=== PATIENT | female | born 1955 | race Caucasian/White ===

== ENCOUNTER → 2016-06-15 | Day surgery (SDC) | payer OTHER ==
[2016-06-11 12:10] LABS: Urine Bilirubin Negative (Negative); Urine Blood Negative /uL (Negative); Urine Color Yellow (Yellow); Urine Glucose Normal (Normal); Urine Ketone Negative (Negative); Urine Mucus FEW (None Seen); Urine Nitrite Negative (Negative); Urine RBC 1 /hpf (0 - 4); Urine Squamous Epithelial Cell MANY /hpf (<5); Urine Urobilinogen Normal (Negative)
[2016-06-11 12:16] LABS: INR 0.95 (0.9-1.15); Prothrombin Time 9.8 sec (9.37-12.3)
[2016-06-11 12:30] LABS: Albumin 3.4 g/dL (3.4-5.0); BUN/Creatinine Ratio 18.7; Calcium 9.2 mg/dL (8.5-10.1); Potassium 4.9 mmol/L (3.5-5.1)
[2016-06-11 12:33] LABS: Bilirubin, Total 0.3 mg/dL (0.2-1.0); Total Protein 7.3 g/dL (6.4-8.2)
[2016-06-11 12:37] LABS: Basophils # (auto) 0.1 uL; Basophils % (auto) 0.7 % (0.0-2.0); Eosinophils # (auto) 0.3 uL; Hematocrit 44.1 % (36.0-46.0); Hemoglobin 14.3 g/dL (12.2-16.2); Lymphocytes # (auto) 3.1 uL; Lymphocytes % (auto) 36.9 % (10.0-50.0); Mean Corpuscular Hemoglobin 30.5 pg (28.0-32.0); Mean Corpuscular Hgb Conc. 32.4 g/dL (32.0-36.0); Mean Corpuscular Volume 94.3 fL (80.0-100.0); Monocytes # (auto) 0.7 uL; Monocytes % (auto) 8.1 % (0.0-12.0); Neutrophils # (auto) 4.1 uL; Neutrophils % (auto) 50.3 % (37.0-80.0); Platelet Count (auto) 294 10^3/uL (140-450); Red Cell Distribution Width 13.3 % (11.6-16.0); White Blood Cell 8.3 10^3/uL (4.4-10.8)
[~2016-06-15] VITALS: Ht 152.4 cm; Wt 90.7 kg
[~2016-06-15] MED LIST: ACYC200C PO; ASCO250T32 PO; CHOL500014 PO; COEN300C PO; EPIN0.3I18 IM; ESTR0.5T8 PO; FERR1TAB12 PO; HYDROmorphone HCL 2 MG/ML VL IV PRN; KETOROLAC TROMETH 30 MG/ML 1ML VIAL IV ONE; LABETALOL HCL 5 MG/ML 4ML SYRINGE IV PRN; MIDAZOLAM HCL 1MG/1ML-2 ML VIAL IV PRN; MIDAZOLAM HCL 1MG/1ML-2 ML VIAL ONE; MULT-902 OR; NITR0.4S29 SL; ONDANSETRON HCL 4 MG/2 ML VIAL IV ONE; ONDANSETRON HCL 4 MG/2 ML VIAL ONE; PEGI15IN SC; PROPOFOL 10 MG/ML 20 ML IV ONE; ROPI0.252 PO; ROPI1TAB2 PO; TRIA50CA38 PO; ePHEDrine SULFATE 50 MG/ML AMP IV PRN; fentaNYL CITRATE 100 MCG/2 ML VL ONE; hydrALAZINE HCL 20 MG/ML VL IV PRN
[2016-06-15 10:00] VITALS: BP 155/87
== END | disposition home or self-care (01) ==
LOC: GI 07:26
PROVIDERS: ATTEND Internal Medicine Gastroenterology
DX: Z12.11 Encounter for screening for malignant neoplasm of colon (principal); K64.8 Other hemorrhoids; J40 Bronchitis, not specified as acute or chronic; J45.909 Unspecified asthma, uncomplicated; E66.9 Obesity, unspecified; Z90.710 Acquired absence of both cervix and uterus
CPT/HCPCS: 36415; 45378; 80053; 81001; 85025; 85610; 85730; J2250; J2405; J2704

== ENCOUNTER → 2016-06-19 | Outpatient (CLI) | payer OTHER ==
[~2016-06-19] MED LIST changes: -HYDROmorphone HCL 2 MG/ML VL IV PRN; -KETOROLAC TROMETH 30 MG/ML 1ML VIAL IV ONE; -LABETALOL HCL 5 MG/ML 4ML SYRINGE IV PRN; -MIDAZOLAM HCL 1MG/1ML-2 ML VIAL IV PRN; -MIDAZOLAM HCL 1MG/1ML-2 ML VIAL ONE; -ONDANSETRON HCL 4 MG/2 ML VIAL IV ONE; -ONDANSETRON HCL 4 MG/2 ML VIAL ONE; -PROPOFOL 10 MG/ML 20 ML IV ONE; -ePHEDrine SULFATE 50 MG/ML AMP IV PRN; -fentaNYL CITRATE 100 MCG/2 ML VL ONE; -hydrALAZINE HCL 20 MG/ML VL IV PRN
[2016-06-19 12:40] LABS: Urine RBC None Seen /hpf (0 - 4)
[2016-06-19 13:31] LABS: Potassium 4.1 mmol/L (3.5-5.1)
[2016-06-19 13:34] LABS: Albumin 3.5 g/dL (3.4-5.0); BUN/Creatinine Ratio 21.1; Calcium 9.2 mg/dL (8.5-10.1)
[2016-06-19 13:49] LABS: Bilirubin, Total 0.3 mg/dL (0.2-1.0); Total Protein 7.4 g/dL (6.4-8.2)
[2016-06-19 14:27] LABS: Urine Bilirubin Negative (Negative); Urine Blood Negative /uL (Negative); Urine Color Yellow (Yellow); Urine Glucose Normal (Normal); Urine Ketone Negative (Negative); Urine Nitrite Negative (Negative); Urine Squamous Epithelial Cell FEW /hpf (<5); Urine Urobilinogen Normal (Negative); Urine pH 6.5 (5.0-8.0)
== END | disposition home or self-care (01) ==
LOC: LAB 10:57
PROVIDERS: ATTEND Family Medicine
DX: I10 Essential (primary) hypertension (principal); E78.5 Hyperlipidemia, unspecified
CPT/HCPCS: 36415; 80053; 80061; 81001; 82306; 82607; 83036; 84443

== ENCOUNTER → 2016-07-31 | Outpatient (CLI) | payer OTHER ==
[2016-07-31 10:16] LABS: Cholesterol 252 mg/dL (<200); HDL Cholesterol 64 mg/dL (40-59); LDL Cholesterol 157 mg/dL (<100); Triglycerides 212 mg/dL (<150)
== END | disposition home or self-care (01) ==
LOC: LAB 08:53
PROVIDERS: ATTEND Family Medicine
DX: E78.5 Hyperlipidemia, unspecified (principal)
CPT/HCPCS: 36415; 80061

== ENCOUNTER → 2016-08-03 | Outpatient (CLI) | payer OTHER ==
[2016-08-03 14:09] LABS: Basophils # (auto) 0 uL; Basophils % (auto) 0.5 % (0.0-2.0); Eosinophils # (auto) 0.3 uL; Eosinophils % (auto) 4.1 % (0.0-7.0); Hematocrit 43.1 % (36.0-46.0); Lymphocytes # (auto) 2.6 uL; Lymphocytes % (auto) 33.8 % (10.0-50.0); Mean Corpuscular Hemoglobin 30.7 pg (28.0-32.0); Mean Corpuscular Hgb Conc. 32.4 g/dL (32.0-36.0); Mean Corpuscular Volume 94.6 fL (80.0-100.0); Mean Platelet Volume 9.2 fL (7.4-10.4); Monocytes # (auto) 0.6 uL; Monocytes % (auto) 7.8 % (0.0-12.0); Neutrophils # (auto) 4.2 uL; Neutrophils % (auto) 53.8 % (37.0-80.0); Platelet Count (auto) 273 10^3/uL (140-450); Red Cell Distribution Width 14.4 % (11.6-16.0); White Blood Cell 7.8 10^3/uL (4.4-10.8)
[2016-08-03 14:22] LABS: INR 0.97 (0.9-1.15); Partial Thromboplastin Time 29.5 sec (22.64-33.71)
[2016-08-03 14:25] LABS: Urine Bilirubin Negative (Negative); Urine Blood Negative /uL (Negative); Urine Color Yellow (Yellow); Urine Glucose Normal (Normal); Urine Ketone Negative (Negative); Urine Mucus FEW (None Seen); Urine Nitrite Negative (Negative); Urine RBC <1 /hpf (0 - 4); Urine Squamous Epithelial Cell FEW /hpf (<5); Urine Urobilinogen Normal (Negative); Urine pH 5.5 (5.0-8.0)
[2016-08-03 14:58] LABS: Albumin 3.6 g/dL (3.4-5.0); BUN/Creatinine Ratio 22.9; Bilirubin, Total 0.3 mg/dL (0.2-1.0); Potassium 3.8 mmol/L (3.5-5.1); Total Protein 7.4 g/dL (6.4-8.2)
== END | disposition home or self-care (01) ==
LOC: LAB 11:40
PROVIDERS: ATTEND Orthopaedic Surgery
DX: M12.819 Other specific arthropathies, not elsewhere classified, unspecified shoulder (principal)
CPT/HCPCS: 36415; 80053; 81001; 85025; 85610; 85730

== ENCOUNTER 2016-08-07 06:01 | Day surgery (SDC) | payer OTHER ==
[~2016-08-07] VITALS: Ht 152.4 cm; Wt 90.7 kg
[2016-08-07] MEDS ORDERED: DOXAPRAM HCL 20 MG/ML 20ML VIAL INJ IV ONE (06:44)
[2016-08-07] MEDS ORDERED: SUCCINYLCHOLINE CHLORIDE 20 MG/ML 10ML VIAL IV ONE (06:44)
[2016-08-07] MEDS ORDERED: SODIUM CHLORIDE LOCK 20 ML ONE (06:54)
[2016-08-07] MEDS ORDERED: KETAMINE HCL 50 MG/ML 10ML VIAL ONE (06:54)
[2016-08-07] MEDS ORDERED: LIDOCAINE HCL 2 %PF INJ 10ML AMP IJ ONE (06:54)
[2016-08-07] MEDS ORDERED: ROCURONIUM 10MG/ML 10ML VIAL IV ONE (06:54)
[2016-08-07] MEDS ORDERED: NEOSTIGMINE 1 MG/ML INJ (10mg/10ML VIAL) ONE (06:54)
[2016-08-07] MEDS ORDERED: PROPOFOL 10 MG/ML 20 ML IV ONE ×2 (06:54→07:22)
[2016-08-07] MEDS ORDERED: MIDAZOLAM HCL 1MG/1ML-2 ML VIAL ONE (06:54)
[2016-08-07] MEDS ORDERED: fentaNYL CITRATE 100 MCG/2 ML VL ONE ×2 (06:54→08:33)
[2016-08-07] MEDS ORDERED: HYDROmorphone HCL 2 MG/ML VL ONE (06:54)
[2016-08-07] MEDS ORDERED: GLYCOPYRROLATE 0.2 MG/ML 1ML VIAL ONE (06:54)
[2016-08-07] MEDS ORDERED: KETOROLAC TROMETH 60MG/2ML VIAL IM ONE (06:54)
[2016-08-07] MEDS ORDERED: HYDROmorphone HCL 2 MG/ML VL IV PRN (07:15)
[2016-08-07] MEDS ORDERED: ONDANSETRON HCL 4 MG/2 ML VIAL IV ONE ×2 (07:15→12:15)
[2016-08-07] MEDS ORDERED: KETOROLAC TROMETH 30 MG/ML 1ML VIAL IV ONE (07:15)
[2016-08-07] MEDS ORDERED: LEVOFLOXACIN 500MG 100 ML IV ONE (07:27)
[2016-08-07] MEDS ORDERED: LIDOCAINE W/ EPINEPHRINE 1 % INJ 30ML ONE (07:30)
[2016-08-07] MEDS ORDERED: LIDOCAINE 1% HCL (LOCAL ANESTH.) INJ 20ML MDV ONE (07:30)
[2016-08-07] MEDS ORDERED: BUPIVACAINE W/ EPINEPH 0.25% INJ 50ML MDV ONE (07:30)
[2016-08-07] MEDS ORDERED: BUPIVACAINE 0.25% INJ 50ML VIAL ONE (07:30)
[2016-08-07] MEDS ORDERED: ACETAMINOPHEN IV 100 ML IV ONE (07:35)
[2016-08-07] MEDS ORDERED: BUPIVACAINE W/ EPINEPH 0.25% INJ 50ML MDV IJ ONE ×2 (08:11→08:47)
[2016-08-07] MEDS ORDERED: ONDANSETRON HCL 4 MG/2 ML VIAL ONE (10:56)
[2016-08-07 11:19] VITALS: BP 154/77
== END 2016-08-07 11:30 | disposition home or self-care (01) ==
LOC: SUR 06:01
PROVIDERS: ATTEND Orthopaedic Surgery
DX: S46.011A Strain of muscle(s) and tendon(s) of the rotator cuff of right shoulder, initial encounter (principal); M12.511 Traumatic arthropathy, right shoulder; J45.909 Unspecified asthma, uncomplicated; J40 Bronchitis, not specified as acute or chronic; E66.9 Obesity, unspecified; Z90.710 Acquired absence of both cervix and uterus; X58.XXXA Exposure to other specified factors, initial encounter; Y93.9 Activity, unspecified; Y92.9 Unspecified place or not applicable; Y99.9 Unspecified external cause status
CPT/HCPCS: 23120; 23130; 23412; J0131; J0330; J1885; J1956; J2250; J2405; J2704; J3010; J2001; J3490

== ENCOUNTER → 2016-09-29 | Outpatient (CLI) | payer OTHER ==
[2016-09-29 10:00] LABS: Urine RBC None Seen /hpf (0 - 4)
[2016-09-29 10:08] LABS: Basophils # (auto) 0 uL; Basophils % (auto) 0.3 % (0.0-2.0); Eosinophils # (auto) 0.4 uL; Eosinophils % (auto) 5.6 % (0.0-7.0); Hematocrit 42.6 % (36.0-46.0); Hemoglobin 14.3 g/dL (12.2-16.2); Lymphocytes # (auto) 2.4 uL; Lymphocytes % (auto) 31.4 % (10.0-50.0); Mean Corpuscular Hemoglobin 31.2 pg (28.0-32.0); Mean Corpuscular Hgb Conc. 33.6 g/dL (32.0-36.0); Mean Corpuscular Volume 92.8 fL (80.0-100.0); Mean Platelet Volume 9.2 fL (7.4-10.4); Monocytes # (auto) 0.4 uL; Monocytes % (auto) 5.1 % (0.0-12.0); Neutrophils # (auto) 4.4 uL; Neutrophils % (auto) 57.6 % (37.0-80.0); Platelet Count (auto) 297 10^3/uL (140-450); Red Cell Distribution Width 14.2 % (11.6-16.0); White Blood Cell 7.6 10^3/uL (4.4-10.8)
[2016-09-29 10:15] LABS: Urine Bilirubin Negative (Negative); Urine Blood Negative /uL (Negative); Urine Color Yellow (Yellow); Urine Glucose Normal (Normal); Urine Ketone Negative (Negative); Urine Nitrite Negative (Negative); Urine Squamous Epithelial Cell FEW /hpf (<5); Urine Urobilinogen Normal (Negative); Urine pH 5.5 (5.0-8.0)
[2016-09-29 10:31] LABS: Albumin 3.5 g/dL (3.4-5.0); BUN/Creatinine Ratio 27.9; Bilirubin, Total 0.3 mg/dL (0.2-1.0); Potassium 4.2 mmol/L (3.5-5.1); Total Protein 7.8 g/dL (6.4-8.2)
== END | disposition home or self-care (01) ==
LOC: LAB 09:24
PROVIDERS: ATTEND Family Medicine
DX: E78.1 Pure hyperglyceridemia (principal)
CPT/HCPCS: 36415; 80053; 80061; 81001; 82306; 82607; 83036; 84443; 85025; 86704; 86706; 86708; 86803; 87340

== ENCOUNTER → 2016-12-14 | Outpatient (CLI) | payer OTHER ==
[~2016-12-14] MED LIST changes: +ACYC1CAP23 PO; -ACYC200C PO
[2016-12-14 11:12] LABS: Basophils # (auto) 0 uL; Basophils % (auto) 0.3 % (0.0-2.0); CONDITION Y; Eosinophils # (auto) 0.3 uL; Eosinophils % (auto) 3.1 % (0.0-7.0); Hemoglobin 14.3 g/dL (12.2-16.2); Lymphocytes # (auto) 2.8 uL; Lymphocytes % (auto) 32.8 % (10.0-50.0); Mean Corpuscular Hemoglobin 31.2 pg (28.0-32.0); Mean Corpuscular Hgb Conc. 33.4 g/dL (32.0-36.0); Mean Corpuscular Volume 93.5 fL (80.0-100.0); Mean Platelet Volume 8.9 fL (7.4-10.4); Monocytes # (auto) 0.7 uL; Monocytes % (auto) 8.9 % (0.0-12.0); Neutrophils # (auto) 4.6 uL; Neutrophils % (auto) 54.9 % (37.0-80.0); Platelet Count (auto) 271 10^3/uL (140-450); Red Cell Distribution Width 13.7 % (11.6-16.0); White Blood Cell 8.4 10^3/uL (4.4-10.8)
[2016-12-14 12:00] LABS: Albumin 3.5 g/dL (3.4-5.0); BUN/Creatinine Ratio 21.8; Bilirubin, Total 0.3 mg/dL (0.2-1.0); Calcium 9.4 mg/dL (8.5-10.1); Potassium 4.7 mmol/L (3.5-5.1); Total Protein 7.8 g/dL (6.4-8.2)
== END | disposition home or self-care (01) ==
LOC: LAB 10:51
PROVIDERS: ATTEND Psychiatry & Neurology Neurology
DX: G35 Multiple sclerosis (principal); G25.81 Restless legs syndrome
CPT/HCPCS: 36415; 80053; 85025

== ENCOUNTER → 2017-01-25 | Outpatient (CLI) | payer OTHER ==
[2017-01-25 11:39] LABS: Basophils # (auto) 0 uL; Basophils % (auto) 0.5 % (0.0-2.0); CONDITION Y; Eosinophils # (auto) 0.2 uL; Eosinophils % (auto) 2.7 % (0.0-7.0); Hematocrit 43.3 % (36.0-46.0); Hemoglobin 14.4 g/dL (12.2-16.2); Lymphocytes # (auto) 2.5 uL; Lymphocytes % (auto) 31.9 % (10.0-50.0); Mean Corpuscular Hemoglobin 31.4 pg (28.0-32.0); Mean Corpuscular Hgb Conc. 33.1 g/dL (32.0-36.0); Mean Corpuscular Volume 94.8 fL (80.0-100.0); Mean Platelet Volume 8.9 fL (7.4-10.4); Monocytes # (auto) 0.6 uL; Monocytes % (auto) 7.9 % (0.0-12.0); Neutrophils # (auto) 4.4 uL; Platelet Count (auto) 284 10^3/uL (140-450); Red Cell Distribution Width 14.4 % (11.6-16.0); White Blood Cell 7.7 10^3/uL (4.4-10.8)
[2017-01-25 12:26] LABS: Albumin 3.6 g/dL (3.4-5.0); BUN/Creatinine Ratio 21.2; Bilirubin, Total 0.5 mg/dL (0.2-1.0); Calcium 9.2 mg/dL (8.5-10.1); Potassium 4.7 mmol/L (3.5-5.1); Total Protein 7.6 g/dL (6.4-8.2)
== END | disposition home or self-care (01) ==
LOC: LAB 11:00
PROVIDERS: ATTEND Psychiatry & Neurology Neurology
DX: I25.708 Atherosclerosis of coronary artery bypass graft(s), unspecified, with other forms of angina pectoris (principal); I25.5 Ischemic cardiomyopathy; I13.0 Hypertensive heart and chronic kidney disease with heart failure and stage 1 through stage 4 chronic kidney disease, or unspecified chronic kidney disease; I50.23 Acute on chronic systolic (congestive) heart failure; N18.9 Chronic kidney disease, unspecified; Z98.61 Coronary angioplasty status; Z95.1 Presence of aortocoronary bypass graft
CPT/HCPCS: 36415; 80053; 85025

== ENCOUNTER 2017-04-17 17:01 | Emergency (ER) | payer OTHER ==
[~2017-04-17] VITALS: Ht 152.4 cm; Wt 88.5 kg
[~2017-04-17 17:01] MED LIST changes: +ESTR0.5T5 PO; -ESTR0.5T8 PO
[2017-04-17 17:10] VITALS: BP 155/107
== END 2017-04-17 19:20 | disposition left against medical advice (07) ==
LOC: ER 17:09
DX: R11.2 Nausea with vomiting, unspecified (principal); M54.9 Dorsalgia, unspecified; Z53.21 Procedure and treatment not carried out due to patient leaving prior to being seen by health care provider
CPT/HCPCS: 93005

== ENCOUNTER → 2017-06-16 | Outpatient (CLI) | payer OTHER ==
[~2017-06-16] MED LIST changes: +ASCO250T10 PO; -ASCO250T32 PO
[2017-06-16 08:56] LABS: Basophils # (auto) 0.1 uL; Basophils % (auto) 0.9 % (0.0-2.0); Eosinophils # (auto) 0.2 uL; Eosinophils % (auto) 3.3 % (0.0-7.0); Hematocrit 42.7 % (36.0-46.0); Hemoglobin 14.2 g/dL (12.2-16.2); Lymphocytes # (auto) 2.3 uL; Lymphocytes % (auto) 29.8 % (10.0-50.0); Mean Corpuscular Hemoglobin 30.7 pg (28.0-32.0); Mean Corpuscular Hgb Conc. 33.2 g/dL (32.0-36.0); Mean Corpuscular Volume 92.6 fL (80.0-100.0); Monocytes # (auto) 0.6 uL; Monocytes % (auto) 7.9 % (0.0-12.0); Neutrophils # (auto) 4.5 uL; Neutrophils % (auto) 58.1 % (37.0-80.0); Nucleated Red Blood Cells % 0.1 %; Platelet Count (auto) 276 10^3/uL (140-450); Red Blood Cells 4.62 10^6/uL (4.0-5.20); Red Cell Distribution Width 13.4 % (11.8-14.3); White Blood Cell 7.7 10^3/uL (4.4-10.8)
[2017-06-16 09:24] LABS: Albumin 3.4 g/dL (3.4-5.0); BUN/Creatinine Ratio 24.3; Bilirubin, Total 0.4 mg/dL (0.2-1.0); Calcium 8.9 mg/dL (8.5-10.1); Potassium 4.4 mmol/L (3.5-5.1); Total Protein 7.6 g/dL (6.4-8.2)
== END | disposition home or self-care (01) ==
LOC: LAB 08:22
PROVIDERS: ATTEND Psychiatry & Neurology Neurology
DX: I10 Essential (primary) hypertension (principal)
CPT/HCPCS: 36415; 80053; 85025

== ENCOUNTER → 2018-06-29 | Outpatient (CLI) | payer OTHER ==
[~2018-06-29] MED LIST changes: -ROPI0.252 PO; +ROPI0.254 PO
== END | disposition home or self-care (01) ==
LOC: LAB 10:29
PROVIDERS: ATTEND Family Medicine
DX: R19.7 Diarrhea, unspecified (principal)
CPT/HCPCS: 87045; 87899

== ENCOUNTER → 2018-10-12 | Outpatient (CLI) | payer OTHER ==
[2018-10-12 10:24] LABS: Urine Bacteria FEW /hpf (None Seen); Urine Blood Negative /uL (Negative); Urine Specific Gravity 1.012 (1.001-1.035); Urine WBC 1 /hpf (0 - 5)
[2018-10-12 10:33] LABS: Basophils # (auto) 0.1 uL; Basophils % (auto) 0.9 % (0.0-2.0); Eosinophils # (auto) 0.2 uL; Eosinophils % (auto) 3.3 % (0.0-7.0); Hematocrit 43.2 % (36.0-46.0); Hemoglobin 14.5 g/dL (12.2-16.2); Lymphocytes # (auto) 1.6 uL; Mean Corpuscular Hemoglobin 31.5 pg (28.0-32.0); Mean Corpuscular Hgb Conc. 33.5 g/dL (32.0-36.0); Mean Corpuscular Volume 94.1 fL (80.0-100.0); Monocytes # (auto) 0.5 uL; Monocytes % (auto) 8.2 % (0.0-12.0); Neutrophils # (auto) 3.3 uL; Neutrophils % (auto) 58.6 % (37.0-80.0); Nucleated Red Blood Cells % 0.1 %; Platelet Count (auto) 261 10^3/uL (140-450); Red Blood Cells 4.59 10^6/uL (4.0-5.20); Red Cell Distribution Width 13.8 % (11.8-14.3); White Blood Cell 5.6 10^3/uL (4.4-10.8)
[2018-10-12 11:14] LABS: Albumin 3.4 g/dL (3.4-5.0); Potassium 4.2 mmol/L (3.5-5.1)
[2018-10-12 11:21] LABS: BUN/Creatinine Ratio 30.3; Bilirubin, Total 0.4 mg/dL (0.2-1.0); Calcium 8.9 mg/dL (8.5-10.1); Total Protein 7.8 g/dL (6.4-8.2)
[2018-10-12 11:52] LABS: % Iron Saturation 19.2 % (15-50)
== END | disposition home or self-care (01) ==
LOC: LAB 08:59
PROVIDERS: ATTEND Family Medicine
DX: D50.9 Iron deficiency anemia, unspecified (principal); E78.2 Mixed hyperlipidemia; G35 Multiple sclerosis; E66.9 Obesity, unspecified; Z79.899 Other long term (current) drug therapy
CPT/HCPCS: 36415; 80053; 80061; 81001; 82306; 82607; 82728; 83540; 83550; 84443; 85025

== ENCOUNTER → 2018-12-12 | Outpatient (CLI) | payer OTHER ==
[~2018-12-12] MED LIST changes: -ASCO250T10 PO; +CYCL0.05 EACHEYE; +EZET10TA22 PO; -FERR1TAB12 PO; -MULT-902 OR; -NITR0.4S29 SL; -PEGI15IN SC; +PRA25T PO; -ROPI0.254 PO; -ROPI1TAB2 PO; +TERI7TAB OR
[2018-12-12 10:07] LABS: Albumin 3.3 g/dL (3.4-5.0); Calcium 8.9 mg/dL (8.5-10.1); Potassium 4.1 mmol/L (3.5-5.1)
[2018-12-12 10:11] LABS: BUN/Creatinine Ratio 37.1; Bilirubin, Total 0.4 mg/dL (0.2-1.0); Total Protein 7.1 g/dL (6.4-8.2)
== END | disposition home or self-care (01) ==
LOC: LAB 09:26
PROVIDERS: ATTEND Psychiatry & Neurology Neurology
DX: G35 Multiple sclerosis (principal); R60.0 Localized edema
CPT/HCPCS: 36415; 80053

== ENCOUNTER 2018-12-16 15:45 | Inpatient (IN) | payer OTHER ==
[~2018-12-16] VITALS: Ht 152.4 cm; Wt 94.0 kg
[2018-12-16] MEDS ORDERED: CLINDAMYCIN 600MG IV 50 ML IV ONE (16:15)
[2018-12-16 16:29] LABS: Basophils # (auto) 0.1 uL; Basophils % (auto) 0.8 % (0.0-2.0); Eosinophils # (auto) 0.5 uL; Eosinophils % (auto) 5.6 % (0.0-7.0); Hematocrit 38.2 % (36.0-46.0); Hemoglobin 12.8 g/dL (12.2-16.2); Lymphocytes # (auto) 2.8 uL; Lymphocytes % (auto) 32.2 % (10.0-50.0); Mean Corpuscular Hemoglobin 31.6 pg (28.0-32.0); Mean Corpuscular Hgb Conc. 33.6 g/dL (32.0-36.0); Monocytes # (auto) 0.8 uL; Monocytes % (auto) 9.3 % (0.0-12.0); Neutrophils # (auto) 4.5 uL; Neutrophils % (auto) 52.1 % (37.0-80.0); Nucleated Red Blood Cells % 0.1 %; Platelet Count (auto) 213 10^3/uL (140-450); Red Blood Cells 4.06 10^6/uL (4.0-5.20); Red Cell Distribution Width 14.2 % (11.8-14.3); White Blood Cell 8.6 10^3/uL (4.4-10.8)
[2018-12-16 16:50] LABS: Albumin 3.4 g/dL (3.4-5.0); BUN/Creatinine Ratio 20.5; Calcium 8.7 mg/dL (8.5-10.1); Potassium 3.7 mmol/L (3.5-5.1)
[2018-12-16 16:52] LABS: Bilirubin, Total 0.1 mg/dL (0.2-1.0); Total Protein 6.9 g/dL (6.4-8.2)
[2018-12-16] MEDS ORDERED: SODIUM CHLORIDE 0.9% 1,000 ML IV ONE (19:22)
[2018-12-16] MEDS ORDERED: VANCOMYCIN 1GM/250ML 250 ML IV ONE (19:30)
[2018-12-16 19:41] LABS: Urine Bacteria FEW /hpf (None Seen); Urine Blood Negative /uL (Negative); Urine Specific Gravity 1.003 (1.001-1.035); Urine WBC 1 /hpf (0 - 5)
[2018-12-16] MEDS ORDERED: ONDANSETRON HCL 4 MG/2 ML VIAL IV PRN (23:15)
[2018-12-16] MEDS ORDERED: ACETAMINOPHEN 500 MG TAB PO PRN (23:15)
[2018-12-16] MEDS ORDERED: TEMAZEPAM 15 MG CAP PO PRN (23:15)
--- NOTE | 2018-12-16 23:41 | NUR ---
[facility] admit from ER MAYRA LOPEZ admitted to [facility] after hand off tool received. Patient oriented to primary RN, unit, room, bed, and unit policies regarding patient care and visiting hours. Patient weighed by bedscale and encouraged to call if they need something. All questions and concerns addressed, patient verbalized understanding.
[2018-12-17] MEDS ORDERED: LABE200T18 PO (01:12)
[2018-12-17] MEDS ORDERED: PRAM0.12 PO (01:12)
[2018-12-17] MEDS ORDERED: AML5T PO (01:12)
[2018-12-17 04:41] VITALS: BP 139/71
[2018-12-17 07:16] LABS: Basophils # (auto) 0.1 uL; Basophils % (auto) 0.8 % (0.0-2.0); Eosinophils # (auto) 0.5 uL; Eosinophils % (auto) 6.9 % (0.0-7.0); Hematocrit 36.2 % (36.0-46.0); Hemoglobin 12.5 g/dL (12.2-16.2); Lymphocytes # (auto) 2.8 uL; Lymphocytes % (auto) 38.3 % (10.0-50.0); Mean Corpuscular Hemoglobin 32.4 pg (28.0-32.0); Mean Corpuscular Hgb Conc. 34.7 g/dL (32.0-36.0); Mean Corpuscular Volume 93.6 fL (80.0-100.0); Monocytes # (auto) 0.8 uL; Monocytes % (auto) 10.3 % (0.0-12.0); Neutrophils # (auto) 3.2 uL; Neutrophils % (auto) 43.7 % (37.0-80.0); Nucleated Red Blood Cells % 0.1 %; Platelet Count (auto) 191 10^3/uL (140-450); Red Blood Cells 3.86 10^6/uL (4.0-5.20); White Blood Cell 7.4 10^3/uL (4.4-10.8)
[2018-12-17 07:20] LABS: BUN/Creatinine Ratio 14.8; Calcium 8.2 mg/dL (8.5-10.1); Potassium 3.6 mmol/L (3.5-5.1)
[2018-12-17 09:00] VITALS: BP 127/65
[2018-12-17] MEDS ORDERED: LABETALOL HCL 200 MG TAB PO SCH (10:00)
[2018-12-17 12:14] VITALS: BP 127/65
--- NOTE | 2018-12-17 13:43 | NUR ---
Discharge instructions given as ordered. Encourage to follow up with PMD as instructed. All questions and concerns addressed. Patient verbalized understanding. Medication reconciliation form completed and copy given to patient. IV removed with catheter intact, pressure dressing applied. Patient ambulated with steady gait to vehicle with all personal belongings, accompanied by family member. No distress noted at time of departure.
[2018-12-17] MEDS ORDERED: CLINDAMYCIN 600MG IV 50 ML IV SCH (14:00)
[2018-12-17] MEDS ORDERED: PRAMIPEXOLE DIHYDROCHLORIDE MO 0.25 MG TAB PO SCH (22:00)
== END 2018-12-17 13:35 | disposition home or self-care (01) | DRG 603 ==
LOC: ER 15:54 → OVERFLOW 15:55 → CENTRAL 23:32
PROVIDERS: ADMIT Nurse Practitioner Family; ATTEND Nurse Practitioner Family
DX: L03.115 Cellulitis of right lower limb (principal); E78.5 Hyperlipidemia, unspecified; L03.116 Cellulitis of left lower limb; G35 Multiple sclerosis; I10 Essential (primary) hypertension; J45.909 Unspecified asthma, uncomplicated; M77.11 Lateral epicondylitis, right elbow; Z96.612 Presence of left artificial shoulder joint; Z96.611 Presence of right artificial shoulder joint; M35.00 Sjogren syndrome, unspecified; Z80.8 Family history of malignant neoplasm of other organs or systems; Z82.49 Family history of ischemic heart disease and other diseases of the circulatory system; Z90.710 Acquired absence of both cervix and uterus; Z88.9 Allergy status to unspecified drugs, medicaments and biological substances
CPT/HCPCS: 36415; 71046; 80048; 80053; 81001; 83605; 83880; 85025; 87040; 96365; 96368; G0378; J3490

== ENCOUNTER → 2019-05-04 | Outpatient (CLI) | payer OTHER ==
[~2019-05-04] MED LIST changes: +AML5T PO; +LABE200T18 PO; -PRA25T PO; +PRAM0.12 PO
== END | disposition home or self-care (01) ==
LOC: LAB 15:00
PROVIDERS: ATTEND Otolaryngology
DX: D10.39 Benign neoplasm of other parts of mouth (principal)

== ENCOUNTER → 2020-02-12 | Outpatient (CLI) | payer OTHER ==
[~2020-02-12] MED LIST changes: +TRIA1CAP5 PO; -TRIA50CA38 PO
[2020-02-12 16:43] LABS: Basophils # (auto) 0.1 10 ^3/uL (0-0.2); Eosinophils # (auto) 0.3 10 ^3/uL (0-0.8); Eosinophils % (auto) 4.3 % (0.0-7.0); Hematocrit 41.2 % (36.0-46.0); Hemoglobin 13.7 g/dL (12.2-16.2); Lymphocytes # (auto) 2.3 10 ^3/uL (0.4-5.4); Lymphocytes % (auto) 29.6 % (10.0-50.0); Mean Corpuscular Hemoglobin 31.1 pg (28.0-32.0); Mean Corpuscular Hgb Conc. 33.2 g/dL (32.0-36.0); Mean Corpuscular Volume 93.7 fL (80.0-100.0); Monocytes # (auto) 0.8 10 ^3/uL (0-1.3); Monocytes % (auto) 10.1 % (0.0-12.0); Neutrophils # (auto) 4.3 10 ^3/uL (1.6-8.6); Nucleated Red Blood Cells % 0.1 %; Platelet Count (auto) 237 10^3/uL (140-450); Red Blood Cells 4.39 10^6/uL (4.0-5.20); Red Cell Distribution Width 13.6 % (11.8-14.3); White Blood Cell 7.7 10^3/uL (4.4-10.8)
[2020-02-12 16:55] LABS: Albumin 3.6 g/dL (3.4-5.0); Calcium 9.1 mg/dL (8.5-10.1); Potassium 4.4 mmol/L (3.5-5.1)
[2020-02-12 16:58] LABS: Bilirubin, Total 0.2 mg/dL (0.2-1.0); Total Protein 7.4 g/dL (6.4-8.2)
== END | disposition home or self-care (01) ==
LOC: LAB 16:14
PROVIDERS: ATTEND Internal Medicine
DX: I10 Essential (primary) hypertension (principal); R60.0 Localized edema
CPT/HCPCS: 36415; 80053; 80061; 85025

== ENCOUNTER → 2020-03-15 | Outpatient (CLI) | payer OTHER | END | disposition home or self-care (01) | LOC: XYW 08:41 | PROVIDERS: ATTEND Internal Medicine | DX: I08.2 Rheumatic disorders of both aortic and tricuspid valves (principal); I10 Essential (primary) hypertension | CPT/HCPCS: 93306 ==

== ENCOUNTER → 2020-04-03 | Outpatient (CLI) | payer OTHER ==
[~2020-04-03] VITALS: Ht 152.4 cm; Wt 93.0 kg
[~2020-04-03] MED LIST changes: +ADENOSINE 78 MG in GIVE UN-DILUTED 0 ML IV STA
== END | disposition home or self-care (01) ==
LOC: XY 08:09
PROVIDERS: ATTEND Internal Medicine
DX: I10 Essential (primary) hypertension (principal)
CPT/HCPCS: 78452; 93017; A9500; J0153

== ENCOUNTER → 2020-06-10 | Outpatient (CLI) | payer OTHER ==
[~2020-06-10] MED LIST changes: -ADENOSINE 78 MG in GIVE UN-DILUTED 0 ML IV STA; -LABE200T18 PO; +LABE200T7 PO
[2020-06-10 09:22] LABS: Albumin 3.2 g/dL (3.4-5.0); Calcium 8.8 mg/dL (8.5-10.1); Potassium 4.8 mmol/L (3.5-5.1)
[2020-06-10 09:26] LABS: BUN/Creatinine Ratio 32.4; Bilirubin, Total 0.4 mg/dL (0.2-1.0); Total Protein 6.9 g/dL (6.4-8.2)
== END | disposition home or self-care (01) ==
LOC: LAB 08:36
PROVIDERS: ATTEND Internal Medicine
DX: I10 Essential (primary) hypertension (principal)
CPT/HCPCS: 36415; 80053

== ENCOUNTER → 2020-07-11 | Outpatient (CLI) | payer OTHER ==
[2020-07-11 14:43] LABS: Basophils # (auto) 0.1 10 ^3/uL (0-0.2); Basophils % (auto) 1.1 % (0.0-2.0); Eosinophils # (auto) 0.4 10 ^3/uL (0-0.8); Eosinophils % (auto) 5.1 % (0.0-7.0); Hematocrit 42.2 % (36.0-46.0); Hemoglobin 13.9 g/dL (12.2-16.2); Lymphocytes # (auto) 3.2 10 ^3/uL (0.4-5.4); Lymphocytes % (auto) 37.3 % (10.0-50.0); Mean Corpuscular Hemoglobin 30.8 pg (28.0-32.0); Mean Corpuscular Volume 93.4 fL (80.0-100.0); Monocytes # (auto) 0.7 10 ^3/uL (0-1.3); Monocytes % (auto) 8.7 % (0.0-12.0); Neutrophils % (auto) 47.8 % (37.0-80.0); Platelet Count (auto) 256 10^3/uL (140-450); Red Blood Cells 4.52 10^6/uL (4.0-5.20); Red Cell Distribution Width 13.7 % (11.8-14.3); White Blood Cell 8.5 10^3/uL (4.4-10.8)
[2020-07-11 16:01] LABS: Albumin 3.3 g/dL (3.4-5.0); BUN/Creatinine Ratio 21.7; Calcium 8.6 mg/dL (8.5-10.1)
[2020-07-11 16:04] LABS: Bilirubin, Total 0.2 mg/dL (0.2-1.0); Total Protein 7.2 g/dL (6.4-8.2)
== END | disposition home or self-care (01) ==
LOC: LAB 14:29
PROVIDERS: ATTEND Psychiatry & Neurology Neurology
DX: G35 Multiple sclerosis (principal)
CPT/HCPCS: 36415; 80053; 85025

== ENCOUNTER → 2020-07-16 | Outpatient (CLI) | payer OTHER ==
[2020-07-16 08:35] LABS: Cholesterol 293 mg/dL (< 200)
[2020-07-16 08:38] LABS: HDL Cholesterol 70 mg/dL (40-59); LDL Cholesterol 166 mg/dL (< 100); Triglycerides 300 mg/dL (< 150)
== END | disposition home or self-care (01) ==
LOC: LAB 07:41
PROVIDERS: ATTEND Internal Medicine
DX: E78.5 Hyperlipidemia, unspecified (principal)
CPT/HCPCS: 36415; 80061

== ENCOUNTER → 2020-07-30 | Outpatient (CLI) | payer OTHER ==
[2020-07-30 13:13] LABS: BUN/Creatinine Ratio 15.9; Calcium 8.5 mg/dL (8.5-10.1); Potassium 4.8 mmol/L (3.5-5.1)
== END | disposition home or self-care (01) ==
LOC: LAB 12:09
PROVIDERS: ATTEND Family Medicine
DX: Z01.812 Encounter for preprocedural laboratory examination (principal); G35 Multiple sclerosis
CPT/HCPCS: 36415; 80048

== ENCOUNTER → 2020-08-06 | Outpatient (CLI) | payer OTHER ==
[~2020-08-06] MED LIST changes: +GADOTERATE MEG 10 MMOL/20ml INJ (0.5MMOL/ml) IV ONE
== END | disposition home or self-care (01) ==
LOC: XYW 12:39
PROVIDERS: ATTEND Family Medicine
DX: G35 Multiple sclerosis (principal); G93.89 Other specified disorders of brain
CPT/HCPCS: 70553; A9575

== ENCOUNTER → 2020-09-18 | Outpatient (CLI) | payer OTHER ==
[~2020-09-18] MED LIST changes: -GADOTERATE MEG 10 MMOL/20ml INJ (0.5MMOL/ml) IV ONE
[2020-09-18 10:18] LABS: Urine Blood Negative /uL (Negative); Urine Specific Gravity 1.022 (1.001-1.035)
[2020-09-18 10:58] LABS: Cholesterol 137 mg/dL (< 200); HDL Cholesterol 54 mg/dL (40-59); LDL Cholesterol 67 mg/dL (< 100); Triglycerides 111 mg/dL (< 150)
== END | disposition home or self-care (01) ==
LOC: LAB 09:19
PROVIDERS: ATTEND Family Medicine
DX: I10 Essential (primary) hypertension (principal); E66.01 Morbid (severe) obesity due to excess calories; E78.5 Hyperlipidemia, unspecified; E03.9 Hypothyroidism, unspecified; E55.9 Vitamin D deficiency, unspecified
CPT/HCPCS: 36415; 80061; 81003; 82306; 82607; 84443

== ENCOUNTER → 2020-10-30 | Outpatient (CLI) | payer OTHER ==
[~2020-10-30] MED LIST changes: +ALIR1INJ SC; +CHOL50007 PO; +DIME240C PO; +FURO40TA4 PO; +ICOS1CAP PO; +LOSA-39 PO; +METO-462 PO; +PRAM0.5T2 PO; +SPIR25TA8 PO
[2020-10-30 10:53] LABS: Basophils # (auto) 0.1 10 ^3/uL (0-0.2); Basophils % (auto) 1.1 % (0.0-2.0); Eosinophils % (auto) 14.9 % (0.0-7.0); Hematocrit 41.6 % (36.0-46.0); Hemoglobin 13.9 g/dL (12.2-16.2); Lymphocytes # (auto) 1.1 10 ^3/uL (0.4-5.4); Lymphocytes % (auto) 16.3 % (10.0-50.0); Mean Corpuscular Hemoglobin 32.2 pg (28.0-32.0); Mean Corpuscular Hgb Conc. 33.4 g/dL (32.0-36.0); Mean Corpuscular Volume 96.4 fL (80.0-100.0); Monocytes # (auto) 0.6 10 ^3/uL (0-1.3); Monocytes % (auto) 8.3 % (0.0-12.0); Neutrophils # (auto) 4.1 10 ^3/uL (1.6-8.6); Neutrophils % (auto) 59.4 % (37.0-80.0); Nucleated Red Blood Cells % 0.1 %; Platelet Count (auto) 244 10^3/uL (140-450); Red Blood Cells 4.31 10^6/uL (4.0-5.20); Red Cell Distribution Width 14.1 % (11.8-14.3); White Blood Cell 6.8 10^3/uL (4.4-10.8)
[2020-10-30 11:09] LABS: INR 0.98 (0.9-1.15); Partial Thromboplastin Time 27.9 sec (23.0-31.2)
[2020-10-30 12:06] LABS: Potassium 3.9 mmol/L (3.5-5.1)
[2020-10-30 12:22] LABS: Albumin 3.7 g/dL (3.4-5.0); BUN/Creatinine Ratio 38.6; Bilirubin, Total 0.4 mg/dL (0.2-1.0); Calcium 8.9 mg/dL (8.5-10.1); Total Protein 7.1 g/dL (6.4-8.2)
== END | disposition home or self-care (01) ==
LOC: LAB 10:30
PROVIDERS: ATTEND Internal Medicine
DX: Z01.812 Encounter for preprocedural laboratory examination (principal); I10 Essential (primary) hypertension
CPT/HCPCS: 36415; 80053; 85025; 85610; 85730

== ENCOUNTER 2020-11-01 06:37 | Day surgery (SDC) | payer OTHER ==
[~2020-11-01] VITALS: Ht 152.4 cm; Wt 87.5 kg
[~2020-11-01 06:37] MED LIST changes: -ACYC1CAP23 PO; -AML5T PO; -CHOL500014 PO; -COEN300C PO; -LABE200T7 PO; -PRAM0.12 PO; -TERI7TAB OR; -TRIA1CAP5 PO
[2020-11-01] MEDS ORDERED: IODIXANOL 320MG/ML 100ML BTL IV ONE ×3 (07:24→07:45)
[2020-11-01] MEDS ORDERED: ANGIOMAX 250 MG VIAL IV ONE (07:40)
[2020-11-01] MEDS ORDERED: SODIUM CHL 0.9% 0 ML ONE (07:40)
[2020-11-01] MEDS ORDERED: MIDAZOLAM HCL 1MG/1ML-2 ML VIAL ONE (07:40)
[2020-11-01] MEDS ORDERED: methylPREDNISolone SOD SUCC 125 MG/2 ML VL ONE (07:40)
[2020-11-01] MEDS ORDERED: diphenhdrAMINE HCL 50 MG/1 ML VL ONE (07:40)
[2020-11-01] MEDS ORDERED: LIDOCAINE 2%HCL (LOCAL ANESTH.) INJ 20ML MDV ONE (07:45)
[2020-11-01] MEDS ORDERED: FAMOTIDINE (10MG/ML) 2ML VL IV ONE (07:54)
[2020-11-01] MEDS ORDERED: VERAPAMIL 2.5MG/ML INJ 2ML VIAL IV ONE (07:58)
[2020-11-01] MEDS ORDERED: HEPARIN SODIUM (PORCINE) 5000 UNITS/ML 1ML VIAL ONE (08:14)
[2020-11-01] MEDS ORDERED: ONDANSETRON HCL 4 MG/2 ML VIAL IV PRN (08:35)
[2020-11-01] MEDS ORDERED: ONDANSETRON HCL 4 MG/2 ML VIAL ONE (08:36)
[2020-11-01] MEDS ORDERED: ACETAMINOPHEN 500 MG TAB PO PRN (09:00)
== END 2020-11-01 11:05 | disposition home or self-care (01) ==
LOC: CATH 06:37
PROVIDERS: ATTEND Internal Medicine
DX: R07.89 Other chest pain (principal); I10 Essential (primary) hypertension; E78.5 Hyperlipidemia, unspecified; G47.30 Sleep apnea, unspecified; Z20.822 Contact with and (suspected) exposure to COVID-19; Z98.890 Other specified postprocedural states; Z79.899 Other long term (current) drug therapy; Z68.37 Body mass index [BMI] 37.0-37.9, adult; Z88.8 Allergy status to other drugs, medicaments and biological substances; Z88.5 Allergy status to narcotic agent; Z88.0 Allergy status to penicillin; Z85.3 Personal history of malignant neoplasm of breast; Z85.42 Personal history of malignant neoplasm of other parts of uterus
CPT/HCPCS: 93458; C1887; C1894; J1200; J1644; J2405; J2930; J3490; Q9967; U0003; 99152; J2250

== ENCOUNTER 2020-12-04 12:15 | Day surgery (SDC) | payer OTHER ==
[2020-11-29 09:35] LABS: Basophils # (auto) 0 10 ^3/uL (0-0.2); Basophils % (auto) 0.4 % (0.0-2.0); Eosinophils # (auto) 0.6 10 ^3/uL (0-0.8); Eosinophils % (auto) 8.9 % (0.0-7.0); Hematocrit 39.8 % (36.0-46.0); Hemoglobin 13.3 g/dL (12.2-16.2); Lymphocytes % (auto) 14.4 % (10.0-50.0); Mean Corpuscular Hemoglobin 31.5 pg (28.0-32.0); Mean Corpuscular Hgb Conc. 33.4 g/dL (32.0-36.0); Mean Corpuscular Volume 94.4 fL (80.0-100.0); Monocytes # (auto) 0.6 10 ^3/uL (0-1.3); Monocytes % (auto) 8.6 % (0.0-12.0); Neutrophils # (auto) 4.7 10 ^3/uL (1.6-8.6); Neutrophils % (auto) 67.7 % (37.0-80.0); Red Blood Cells 4.22 10^6/uL (4.0-5.20); Red Cell Distribution Width 13.6 % (11.8-14.3); White Blood Cell 6.9 10^3/uL (4.4-10.8)
[2020-11-29 10:25] LABS: Urine Bacteria FEW /hpf (None Seen); Urine Blood Negative /uL (Negative); Urine Mucus FEW (None Seen); Urine Specific Gravity 1.014 (1.001-1.035); Urine WBC 1 /hpf (0 - 5)
[2020-11-29 11:04] LABS: Potassium 3.8 mmol/L (3.5-5.1)
[2020-11-29 11:12] LABS: Albumin 3.5 g/dL (3.4-5.0); Bilirubin, Total 0.5 mg/dL (0.2-1.0); Calcium 8.5 mg/dL (8.5-10.1); Total Protein 6.9 g/dL (6.4-8.2)
[~2020-12-04] VITALS: Ht 152.4 cm; Wt 86.6 kg
[~2020-12-04 12:15] MED LIST changes: +DILT240C59 PO; -METO-462 PO
[2020-12-04] MEDS ORDERED: SODIUM CHLORIDE LOCK 10 ML ONE (12:59)
[2020-12-04] MEDS ORDERED: LIDOCAINE VISCOUS 2% 15ML UD ONE (13:00)
[2020-12-04] MEDS: diphenhdrAMINE HCL 50 MG/1 ML VL ONE ×2 (14:12→14:15)
[2020-12-04] MEDS: MIDAZOLAM HCL 5 MG/ML-1ML VIAL ONE ×3 (14:12→14:18)
[2020-12-04] MEDS ORDERED: ONDANSETRON HCL 4 MG/2 ML VIAL ONE (14:42)
[2020-12-04] MEDS ORDERED: ONDANSETRON HCL 4 MG/2 ML VIAL IV ONE (14:45)
[2020-12-04 15:00] VITALS: BP 119/60
== END 2020-12-04 15:20 | disposition home or self-care (01) ==
LOC: GI 12:15
PROVIDERS: ATTEND Internal Medicine Gastroenterology
DX: R19.7 Diarrhea, unspecified (principal); R11.0 Nausea; K44.9 Diaphragmatic hernia without obstruction or gangrene; K31.89 Other diseases of stomach and duodenum; K29.80 Duodenitis without bleeding; K29.50 Unspecified chronic gastritis without bleeding; I10 Essential (primary) hypertension; E78.5 Hyperlipidemia, unspecified; G47.30 Sleep apnea, unspecified; G35 Multiple sclerosis; Z98.890 Other specified postprocedural states; Z79.899 Other long term (current) drug therapy; Z20.822 Contact with and (suspected) exposure to COVID-19; Z85.3 Personal history of malignant neoplasm of breast; Z85.42 Personal history of malignant neoplasm of other parts of uterus; Z90.710 Acquired absence of both cervix and uterus; Z82.49 Family history of ischemic heart disease and other diseases of the circulatory system; Z80.8 Family history of malignant neoplasm of other organs or systems
CPT/HCPCS: 36415; 43239; 80053; 81001; 85025; 88305; 88342; J1200; J2250; J2405; J7030; U0003; 99152

== ENCOUNTER → 2020-12-31 | Outpatient (CLI) | payer OTHER ==
[2020-12-31 11:16] LABS: Basophils # (auto) 0.1 10 ^3/uL (0-0.2); Eosinophils # (auto) 0.2 10 ^3/uL (0-0.8); Eosinophils % (auto) 2.9 % (0.0-7.0); Hemoglobin 14.1 g/dL (12.2-16.2); Lymphocytes # (auto) 1.7 10 ^3/uL (0.4-5.4); Lymphocytes % (auto) 22.1 % (10.0-50.0); Mean Corpuscular Hemoglobin 31.3 pg (28.0-32.0); Mean Corpuscular Hgb Conc. 33.5 g/dL (32.0-36.0); Mean Corpuscular Volume 93.3 fL (80.0-100.0); Monocytes # (auto) 0.7 10 ^3/uL (0-1.3); Monocytes % (auto) 8.8 % (0.0-12.0); Neutrophils # (auto) 5.1 10 ^3/uL (1.6-8.6); Neutrophils % (auto) 65.2 % (37.0-80.0); Red Cell Distribution Width 13.5 % (11.8-14.3); White Blood Cell 7.8 10^3/uL (4.4-10.8)
[2020-12-31 12:09] LABS: Potassium 4.2 mmol/L (3.5-5.1)
[2020-12-31 12:20] LABS: Albumin 3.5 g/dL (3.4-5.0); BUN/Creatinine Ratio 31.1; Bilirubin, Total 0.4 mg/dL (0.2-1.0); Calcium 9.3 mg/dL (8.5-10.1); Total Protein 7.5 g/dL (6.4-8.2)
== END | disposition home or self-care (01) ==
LOC: LAB 10:59
PROVIDERS: ATTEND Psychiatry & Neurology Neurology
DX: G35 Multiple sclerosis (principal)
CPT/HCPCS: 36415; 80053; 85025

== ENCOUNTER → 2021-06-06 | Day surgery (SDC) | payer OTHER ==
[2021-06-03 10:44] LABS: Basophils # (auto) 0 10 ^3/uL (0-0.2); Basophils % (auto) 0.5 % (0.0-2.0); Eosinophils # (auto) 0.5 10 ^3/uL (0-0.8); Hematocrit 42.9 % (36.0-46.0); Hemoglobin 13.9 g/dL (12.2-16.2); Lymphocytes % (auto) 10.9 % (10.0-50.0); Mean Corpuscular Hemoglobin 30.3 pg (28.0-32.0); Mean Corpuscular Hgb Conc. 32.4 g/dL (32.0-36.0); Mean Corpuscular Volume 93.6 fL (80.0-100.0); Monocytes # (auto) 0.7 10 ^3/uL (0-1.3); Neutrophils # (auto) 6.9 10 ^3/uL (1.6-8.6); Neutrophils % (auto) 75.6 % (37.0-80.0); Nucleated Red Blood Cells % 0.1 %; Red Blood Cells 4.59 10^6/uL (4.0-5.20); Red Cell Distribution Width 13.5 % (11.8-14.3); White Blood Cell 9.1 10^3/uL (4.4-10.8)
[2021-06-03 13:03] LABS: Potassium 4.5 mmol/L (3.5-5.1)
[2021-06-03 13:16] LABS: Albumin 3.7 g/dL (3.4-5.0); BUN/Creatinine Ratio 28.4; Bilirubin, Total 0.4 mg/dL (0.2-1.0); Calcium 9.3 mg/dL (8.5-10.1); Total Protein 7.2 g/dL (6.4-8.2)
[~2021-06-06] VITALS: Ht 152.4 cm; Wt 76.7 kg
[~2021-06-06] MED LIST changes: -ALIR1INJ SC; +ALIR75IN2 SC; +FAMO-68 PO; -ICOS1CAP PO; +LIDO5DIS21 TOP; -LOSA-39 PO; +METO-281 PO; +ONDA-144 PO; +ONDANSETRON HCL 4 MG/2 ML VIAL IV ONE; +ONDANSETRON HCL 4 MG/2 ML VIAL ONE; +ZOLP12.52 PO; +fentaNYL CITRATE 100 MCG/2 ML VL ONE
[2021-06-06] MEDS: diphenhdrAMINE HCL 50 MG/1 ML VL ONE ×2 (14:03→14:06)
[2021-06-06] MEDS: MIDAZOLAM HCL 5 MG/ML-1ML VIAL ONE ×3 (14:03→14:10)
[2021-06-06 15:05] VITALS: BP 140/64
== END | disposition home or self-care (01) ==
LOC: GI 12:39
PROVIDERS: ATTEND Internal Medicine Gastroenterology
DX: R19.5 Other fecal abnormalities (principal); K64.8 Other hemorrhoids; G47.30 Sleep apnea, unspecified; I10 Essential (primary) hypertension; E78.5 Hyperlipidemia, unspecified; J45.909 Unspecified asthma, uncomplicated; Z90.10 Acquired absence of unspecified breast and nipple; Z85.3 Personal history of malignant neoplasm of breast; Z85.42 Personal history of malignant neoplasm of other parts of uterus; Z90.710 Acquired absence of both cervix and uterus; Z82.49 Family history of ischemic heart disease and other diseases of the circulatory system; Z83.79 Family history of other diseases of the digestive system; Z96.611 Presence of right artificial shoulder joint; Z96.612 Presence of left artificial shoulder joint; Z90.49 Acquired absence of other specified parts of digestive tract; Z90.89 Acquired absence of other organs; Z98.890 Other specified postprocedural states; Z79.899 Other long term (current) drug therapy; Z88.5 Allergy status to narcotic agent; Z88.6 Allergy status to analgesic agent; Z88.7 Allergy status to serum and vaccine; Z88.8 Allergy status to other drugs, medicaments and biological substances; Z20.822 Contact with and (suspected) exposure to COVID-19
CPT/HCPCS: 36415; 45378; 80053; 85025; J1200; J2250; J2405; J7030; U0003; 99152

== ENCOUNTER → 2021-08-18 | Outpatient (CLI) | payer OTHER ==
[~2021-08-18] MED LIST changes: -ONDANSETRON HCL 4 MG/2 ML VIAL IV ONE; -ONDANSETRON HCL 4 MG/2 ML VIAL ONE; -fentaNYL CITRATE 100 MCG/2 ML VL ONE
[2021-08-18 09:48] LABS: Cholesterol 148 mg/dL (< 200); HDL Cholesterol 70 mg/dL (40-59); LDL Cholesterol 58 mg/dL (< 100); Triglycerides 82 mg/dL (< 150)
== END | disposition home or self-care (01) ==
LOC: LAB 08:03
PROVIDERS: ATTEND Student in an Organized Health Care Education/Training Program
DX: E78.49 Other hyperlipidemia (principal)
CPT/HCPCS: 36415; 80061

== ENCOUNTER → 2021-10-27 | Outpatient (CLI) | payer OTHER | END | disposition home or self-care (01) | LOC: LAB 07:41 | PROVIDERS: ATTEND Internal Medicine | DX: Z01.812 Encounter for preprocedural laboratory examination (principal); I13.0 Hypertensive heart and chronic kidney disease with heart failure and stage 1 through stage 4 chronic kidney disease, or unspecified chronic kidney disease | CPT/HCPCS: 36415; 82565; 84520 ==

== ENCOUNTER → 2021-10-27 | Outpatient (CLI) | payer OTHER ==
[2021-10-27 09:00] VITALS: BP 115/54
[2021-10-27 09:48] VITALS: BP 120/66
== END | disposition home or self-care (01) ==
LOC: CHF HDHVI 08:47
PROVIDERS: ATTEND Internal Medicine Cardiovascular Disease
DX: R60.0 Localized edema (principal)
CPT/HCPCS: G0463

== ENCOUNTER → 2021-10-29 | Outpatient (CLI) | payer OTHER | END | disposition home or self-care (01) | LOC: LAB 10:19 | PROVIDERS: ATTEND Psychiatry & Neurology Neurology | DX: I82.409 Acute embolism and thrombosis of unspecified deep veins of unspecified lower extremity (principal); G25.81 Restless legs syndrome; G35 Multiple sclerosis; E66.8 Other obesity; R60.0 Localized edema; G40.109 Localization-related (focal) (partial) symptomatic epilepsy and epileptic syndromes with simple partial seizures, not intractable, without status epilepticus | CPT/HCPCS: 36415; 82565; 84520 ==

== ENCOUNTER → 2021-10-29 | Outpatient (CLI) | payer OTHER ==
[2021-10-29 10:49] VITALS: BP 131/64
[2021-10-29 11:29] VITALS: BP 132/68
== END | disposition home or self-care (01) ==
LOC: CHF HDHVI 10:48
PROVIDERS: ATTEND Internal Medicine
DX: R60.0 Localized edema (principal)
CPT/HCPCS: G0463

== ENCOUNTER → 2022-02-05 | Outpatient (CLI) | payer OTHER ==
[2022-02-05 10:25] LABS: Basophils # (auto) 0.1 10 ^3/uL (0-0.2); Basophils % (auto) 0.9 % (0.0-2.0); Eosinophils # (auto) 0.3 10 ^3/uL (0-0.8); Eosinophils % (auto) 3.2 % (0.0-7.0); Hematocrit 40.5 % (36.0-46.0); Hemoglobin 13.2 g/dL (12.2-16.2); Lymphocytes % (auto) 12.1 % (10.0-50.0); Mean Corpuscular Hemoglobin 29.9 pg (28.0-32.0); Mean Corpuscular Hgb Conc. 32.5 g/dL (32.0-36.0); Mean Corpuscular Volume 91.8 fL (80.0-100.0); Monocytes # (auto) 0.8 10 ^3/uL (0-1.3); Monocytes % (auto) 9.6 % (0.0-12.0); Neutrophils # (auto) 5.9 10 ^3/uL (1.6-8.6); Neutrophils % (auto) 74.2 % (37.0-80.0); Red Blood Cells 4.42 10^6/uL (4.0-5.20); Red Cell Distribution Width 13.2 % (11.8-14.3); White Blood Cell 7.9 10^3/uL (4.4-10.8)
[2022-02-05 10:53] LABS: Albumin 3.5 g/dL (3.4-5.0); Potassium 4.7 mmol/L (3.5-5.1)
[2022-02-05 10:56] LABS: Bilirubin, Total 0.3 mg/dL (0.2-1.0); Total Protein 6.8 g/dL (6.4-8.2)
== END | disposition home or self-care (01) ==
LOC: LAB 10:05
PROVIDERS: ATTEND Internal Medicine
DX: I87.2 Venous insufficiency (chronic) (peripheral) (principal); I10 Essential (primary) hypertension; I73.00 Raynaud's syndrome without gangrene; G35 Multiple sclerosis
CPT/HCPCS: 36415; 80053; 85025; 85613; 85670; 85705; 85732; 86038; 86225; 86431

== ENCOUNTER → 2022-02-20 | Outpatient (CLI) | payer OTHER | END | disposition home or self-care (01) | LOC: XY 11:08 | PROVIDERS: ATTEND Internal Medicine | DX: I65.23 Occlusion and stenosis of bilateral carotid arteries (principal); R09.89 Other specified symptoms and signs involving the circulatory and respiratory systems | CPT/HCPCS: 93886 ==

== ENCOUNTER → 2022-08-28 | Outpatient (CLI) | payer OTHER ==
[2022-08-28 10:58] LABS: Albumin 3.4 g/dL (3.4-5.0); Calcium 9.4 mg/dL (8.5-10.1); Potassium 4.6 mmol/L (3.5-5.1)
[2022-08-28 11:01] LABS: BUN/Creatinine Ratio 29.9 (10.0-20.0); Bilirubin, Total 0.3 mg/dL (0.2-1.0); Total Protein 7.1 g/dL (6.4-8.2)
[2022-08-28 11:10] LABS: Neutrophils % (auto) 68.7 % (37.0-80.0); White Blood Cell 6.7 10^3/uL (4.4-10.8)
[2022-08-28 11:11] LABS: Eosinophils % (auto) 2.9 % (0.0-7.0); Lymphocytes % (auto) 17.5 % (10.0-50.0); Monocytes % (auto) 10.5 % (0.0-12.0)
[2022-08-28 11:15] LABS: Basophils # (auto) 0 10 ^3/uL (0-0.2); Basophils % (auto) 0.4 % (0.0-2.0); Eosinophils # (auto) 0.2 10 ^3/uL (0-0.8); Lymphocytes # (auto) 1.2 10 ^3/uL (0.4-5.4); Monocytes # (auto) 0.7 10 ^3/uL (0-1.3); Neutrophils # (auto) 4.6 10 ^3/uL (1.6-8.6); Nucleated Red Blood Cells % 0.1 %
[2022-08-28 11:16] LABS: Hematocrit 40.8 % (36.0-46.0); Hemoglobin 13.6 g/dL (12.2-16.2); Mean Corpuscular Hemoglobin 31.1 pg (28.0-32.0); Mean Corpuscular Hgb Conc. 33.3 g/dL (32.0-36.0); Mean Corpuscular Volume 93.4 fL (80.0-100.0); Red Blood Cells 4.37 10^6/uL (4.0-5.20)
[2022-08-28 11:17] LABS: Red Cell Distribution Width 13.7 % (11.8-14.3)
== END | disposition home or self-care (01) ==
LOC: LAB 09:48
PROVIDERS: ATTEND Podiatrist
DX: G35 Multiple sclerosis (principal)
CPT/HCPCS: 36415; 80053; 85025

== ENCOUNTER 2022-09-02 09:48 | Day surgery (SDC) | payer OTHER ==
[2022-08-28 10:20] LABS: Urine Bacteria NONE SEEN /hpf (None Seen); Urine Blood Negative /uL (Negative); Urine Mucus FEW (None Seen); Urine Specific Gravity 1.022 (1.001-1.035); Urine WBC 2 /hpf (0 - 5)
[2022-08-28 10:26] LABS: Basophils # (auto) 0 10 ^3/uL (0-0.2); Basophils % (auto) 0.4 % (0.0-2.0); Eosinophils # (auto) 0.2 10 ^3/uL (0-0.8); Eosinophils % (auto) 2.9 % (0.0-7.0); Hematocrit 40.8 % (36.0-46.0); Hemoglobin 13.6 g/dL (12.2-16.2); Lymphocytes # (auto) 1.2 10 ^3/uL (0.4-5.4); Lymphocytes % (auto) 17.5 % (10.0-50.0); Mean Corpuscular Hemoglobin 31.1 pg (28.0-32.0); Mean Corpuscular Hgb Conc. 33.3 g/dL (32.0-36.0); Mean Corpuscular Volume 93.4 fL (80.0-100.0); Monocytes # (auto) 0.7 10 ^3/uL (0-1.3); Monocytes % (auto) 10.5 % (0.0-12.0); Neutrophils # (auto) 4.6 10 ^3/uL (1.6-8.6); Neutrophils % (auto) 68.7 % (37.0-80.0); Nucleated Red Blood Cells % 0.1 %; Red Blood Cells 4.37 10^6/uL (4.0-5.20); Red Cell Distribution Width 13.7 % (11.8-14.3); White Blood Cell 6.7 10^3/uL (4.4-10.8)
[2022-08-28 10:38] LABS: INR 0.92 (0.9-1.15); Partial Thromboplastin Time 30.1 sec (24.6-33.4)
[2022-08-28 10:52] LABS: Calcium 9.4 mg/dL (8.5-10.1); Potassium 4.6 mmol/L (3.5-5.1)
[2022-08-28 10:55] LABS: Albumin 3.5 g/dL (3.4-5.0); BUN/Creatinine Ratio 28.8 (10.0-20.0); Bilirubin, Total 0.3 mg/dL (0.2-1.0); Total Protein 7.1 g/dL (6.4-8.2)
[~2022-09-02] VITALS: Ht 152.4 cm; Wt 81.6 kg
[2022-09-02] MEDS ORDERED: ceFAZolin 1GM/50ML 100 ML IV ONE (09:59)
[2022-09-02] MEDS ORDERED: BUPIVACAINE HCL 0 ML ONE (10:15)
[2022-09-02] MEDS ORDERED: LIDOCAINE HCL (LOCAL ANESTH.) 0.5 % 50ML MDV IJ ONE (10:15)
[2022-09-02] MEDS ORDERED: PROPOFOL 10 MG/ML 20 ML IV ONE ×2 (10:49→11:41)
[2022-09-02] MEDS ORDERED: ONDANSETRON HCL 4 MG/2 ML VIAL ONE (10:51)
[2022-09-02] MEDS ORDERED: LIDOCAINE 2% (LOCAL ANESTH.) PF 5ml SDV ONE (10:51)
[2022-09-02] MEDS ORDERED: KETOROLAC TROMETH 30 MG/ML 1ML VIAL ONE (10:51)
[2022-09-02] MEDS ORDERED: DexAMETHasone SOD PHOS 10MG/1ML VIAL INJ ONE (10:51)
[2022-09-02] MEDS ORDERED: GLYCOPYRROLATE 0.2 MG/ML 1ML VIAL ONE (10:51)
[2022-09-02] MEDS ORDERED: BUPIVACAINE HCL 50 ML ONE (11:59)
[2022-09-02 13:27] VITALS: BP 134/92
== END 2022-09-02 13:32 | disposition home or self-care (01) ==
LOC: SUR 09:48
PROVIDERS: ATTEND Podiatrist
DX: M21.621 Bunionette of right foot (principal); M72.2 Plantar fascial fibromatosis; J45.909 Unspecified asthma, uncomplicated; I10 Essential (primary) hypertension; K21.9 Gastro-esophageal reflux disease without esophagitis; I25.10 Atherosclerotic heart disease of native coronary artery without angina pectoris; M19.90 Unspecified osteoarthritis, unspecified site; E78.5 Hyperlipidemia, unspecified; K59.09 Other constipation; F32.A Depression, unspecified; Z90.49 Acquired absence of other specified parts of digestive tract; Z88.6 Allergy status to analgesic agent; Z88.8 Allergy status to other drugs, medicaments and biological substances; Z88.2 Allergy status to sulfonamides; Z91.048 Other nonmedicinal substance allergy status; Z88.1 Allergy status to other antibiotic agents; Z88.5 Allergy status to narcotic agent; G47.30 Sleep apnea, unspecified; Z85.3 Personal history of malignant neoplasm of breast; Z82.49 Family history of ischemic heart disease and other diseases of the circulatory system; Z80.9 Family history of malignant neoplasm, unspecified; Z85.42 Personal history of malignant neoplasm of other parts of uterus; Z90.710 Acquired absence of both cervix and uterus; Z98.890 Other specified postprocedural states; Z79.899 Other long term (current) drug therapy
CPT/HCPCS: 28060; 28308; 36415; 80053; 81001; 85025; 85610; 85730; J0690; J1100; J1885; J2001; J2405; J2704; J3490

== ENCOUNTER → 2022-12-09 | Day surgery (SDC) | payer OTHER ==
[2022-12-07 09:48] LABS: Basophils # (auto) 0 10 ^3/uL (0-0.2); Basophils % (auto) 0.7 % (0.0-2.0); Eosinophils # (auto) 0.2 10 ^3/uL (0-0.8); Eosinophils % (auto) 3.3 % (0.0-7.0); Hematocrit 43.4 % (36.0-46.0); Hemoglobin 14.2 g/dL (12.2-16.2); Lymphocytes # (auto) 1.2 10 ^3/uL (0.4-5.4); Lymphocytes % (auto) 19.8 % (10.0-50.0); Mean Corpuscular Hemoglobin 30.5 pg (28.0-32.0); Mean Corpuscular Hgb Conc. 32.7 g/dL (32.0-36.0); Mean Corpuscular Volume 93.2 fL (80.0-100.0); Monocytes # (auto) 0.6 10 ^3/uL (0-1.3); Monocytes % (auto) 9.8 % (0.0-12.0); Neutrophils # (auto) 4.2 10 ^3/uL (1.6-8.6); Neutrophils % (auto) 66.4 % (37.0-80.0); Nucleated Red Blood Cells % 0.1 %; Red Blood Cells 4.66 10^6/uL (4.0-5.20); Red Cell Distribution Width 13.6 % (11.8-14.3); White Blood Cell 6.3 10^3/uL (4.4-10.8)
[2022-12-07 10:17] LABS: Potassium 4.6 mmol/L (3.5-5.1)
[2022-12-07 10:28] LABS: Albumin 3.4 g/dL (3.4-5.0); BUN/Creatinine Ratio 25.6 (10.0-20.0); Bilirubin, Total 0.4 mg/dL (0.2-1.0); Calcium 9.4 mg/dL (8.5-10.1); Total Protein 7.6 g/dL (6.4-8.2)
[2022-12-07 10:51] LABS: INR 0.93 (0.9-1.15); Partial Thromboplastin Time 31.1 SEC (24.5-34.5)
[~2022-12-09] VITALS: Ht 152.4 cm; Wt 85.3 kg
[~2022-12-09] MED LIST changes: -DILT240C59 PO; -EZET10TA22 PO; +KETAMINE HCL 10 ML ONE; +LIDOCAINE VISCOUS 2% 15ML UD ONE; -METO-281 PO; +MIDAZOLAM HCL 5 MG/ML-1ML VIAL ONE; +OMEP20TA PO; +ONDANSETRON HCL 4 MG/2 ML VIAL IV PRN; +ONDANSETRON HCL 4 MG/2 ML VIAL ONE; +PRA1C PO; -PRAM0.5T2 PO; +PRAM0.7513 PO; +PREG50CA PO; +PROPOFOL 10 MG/ML 20 ML IV ONE; +SODIUM CHLORIDE LOCK 10 ML ONE; +SUCR1SUS5 PO; -ZOLP12.52 PO; +diphenhdrAMINE HCL 50 MG/1 ML VL ONE
[2022-12-09 14:50] VITALS: RESP 15; TEMP 96.9; O2SAT 99
[2022-12-09 15:42] VITALS: BP 152/74; PULSE 76; RESP 12; O2SAT 97
== END | disposition home or self-care (01) ==
LOC: GI 12-08 09:57
PROVIDERS: ATTEND Internal Medicine Gastroenterology
DX: R13.12 Dysphagia, oropharyngeal phase (principal); R10.13 Epigastric pain; K22.2 Esophageal obstruction; K29.90 Gastroduodenitis, unspecified, without bleeding; K44.9 Diaphragmatic hernia without obstruction or gangrene
CPT/HCPCS: 36415; 43239; 43450; 80053; 85025; 85610; 85730; 88305; 88312; 88342; J2405; J2704; J7030; J2250

== ENCOUNTER → 2023-01-07 | Outpatient (CLI) | payer OTHER ==
[~2023-01-07] MED LIST changes: -KETAMINE HCL 10 ML ONE; -LIDOCAINE VISCOUS 2% 15ML UD ONE; -MIDAZOLAM HCL 5 MG/ML-1ML VIAL ONE; -ONDANSETRON HCL 4 MG/2 ML VIAL IV PRN; -ONDANSETRON HCL 4 MG/2 ML VIAL ONE; -PROPOFOL 10 MG/ML 20 ML IV ONE; -SODIUM CHLORIDE LOCK 10 ML ONE; -diphenhdrAMINE HCL 50 MG/1 ML VL ONE
[2023-01-07 14:50] LABS: Urine Bacteria FEW /hpf (None Seen); Urine Blood Negative /uL (Negative); Urine Clarity Clear (Clear); Urine Color Yellow (Yellow); Urine Mucus FEW (None Seen); Urine Protein, UAD Negative (Negative); Urine Specific Gravity 1.024 (1.001-1.035); Urine Urobilinogen Normal (Negative); Urine WBC <1 /hpf (0 - 5)
== END | disposition home or self-care (01) ==
LOC: LAB 14:07
PROVIDERS: ATTEND Urology
DX: N39.0 Urinary tract infection, site not specified (principal)
CPT/HCPCS: 81001; 87086

== ENCOUNTER → 2023-06-08 | Outpatient (CLI) | payer OTHER | END | disposition home or self-care (01) | LOC: XYW 10:37 | PROVIDERS: ATTEND Internal Medicine | DX: I51.7 Cardiomegaly (principal); R07.9 Chest pain, unspecified | CPT/HCPCS: 93306 ==

== ENCOUNTER → 2023-06-08 | Outpatient (CLI) | payer OTHER ==
[2023-06-08 11:55] LABS: Basophils # (auto) 0.1 10 ^3/uL (0-0.2); Basophils % (auto) 0.6 % (0.0-2.0); Eosinophils # (auto) 0.3 10 ^3/uL (0-0.8); Eosinophils % (auto) 3.5 % (0.0-7.0); Hematocrit 42.4 % (36.0-46.0); Lymphocytes # (auto) 1.4 10 ^3/uL (0.4-5.4); Lymphocytes % (auto) 17.2 % (10.0-50.0); Mean Corpuscular Hemoglobin 30.9 pg (28.0-32.0); Mean Corpuscular Volume 93.6 fL (80.0-100.0); Monocytes # (auto) 0.7 10 ^3/uL (0-1.3); Monocytes % (auto) 8.3 % (0.0-12.0); Neutrophils # (auto) 5.5 10 ^3/uL (1.6-8.6); Neutrophils % (auto) 70.4 % (37.0-80.0); Red Blood Cells 4.53 10^6/uL (4.0-5.20); White Blood Cell 7.9 10^3/uL (4.4-10.8)
[2023-06-08 12:30] LABS: Alanine Aminotransferase 24 U/L (7-40); Alkaline Phosphatase 87 U/L (46-116); Anion Gap 4 (5-15); BUN/Creatinine Ratio 21.1 (10.0-20.0); Blood Urea Nitrogen 16 mg/dL (9-23); Carbon Dioxide 28 mmol/L (20-30); Chloride 106 mmol/L (98-107); Glucose 95 mg/dL (74-106); Potassium 4.2 mmol/L (3.5-5.1); Sodium 138 mmol/L (136-145); Triglycerides 147 mg/dL (< 150)
[2023-06-08 12:31] LABS: Albumin 4.5 g/dL (3.2-4.8); LDL Cholesterol 141 mg/dL (< 100)
[2023-06-08 12:32] LABS: Aspartate Aminotransferase 16 U/L (13-40); Bilirubin, Total 0.6 mg/dL (0.2-1.0); Cholesterol 224 mg/dL (< 200); HDL Cholesterol 65 mg/dL (40-59); Total Protein 7.3 g/dL (5.7-8.2)
[2023-06-08 13:52] LABS: Free T3 3.24 pg/mL (2.3-4.2)
[2023-06-08 13:53] LABS: Free T4 (Free Thyroxine) 0.95 ng/dL (0.89-1.76)
== END | disposition home or self-care (01) ==
LOC: LAB 11:22
PROVIDERS: ATTEND Internal Medicine
DX: I13.0 Hypertensive heart and chronic kidney disease with heart failure and stage 1 through stage 4 chronic kidney disease, or unspecified chronic kidney disease (principal); N18.9 Chronic kidney disease, unspecified; I50.9 Heart failure, unspecified; I20.1 Angina pectoris with documented spasm
CPT/HCPCS: 36415; 80053; 80061; 84439; 84443; 84481; 85025

== ENCOUNTER → 2023-06-23 | Outpatient (CLI) | payer OTHER ==
[~2023-06-23] VITALS: Ht 152.4 cm; Wt 81.6 kg
[~2023-06-23] MED LIST changes: +ADENOSINE 69 MG in GIVE UN-DILUTED 0 ML IV ONE; +ADENOSINE 90 MG/30 ML INJ IV ONE
== END | disposition home or self-care (01) ==
LOC: Rad HDHVI 08:03
PROVIDERS: ATTEND Internal Medicine Cardiovascular Disease
DX: R07.89 Other chest pain (principal); I10 Essential (primary) hypertension; E78.00 Pure hypercholesterolemia, unspecified; Z82.49 Family history of ischemic heart disease and other diseases of the circulatory system
CPT/HCPCS: 78452; 93005; 96374; 96375; A9500; J0153

== ENCOUNTER 2023-11-04 08:50 | Emergency (ER) | payer OTHER ==
[~2023-11-04] VITALS: Ht 152.4 cm; Wt 89.2 kg
[~2023-11-04 08:50] MED LIST changes: -ADENOSINE 69 MG in GIVE UN-DILUTED 0 ML IV ONE; -ADENOSINE 90 MG/30 ML INJ IV ONE
[2023-11-04 09:05] VITALS: BP 178/82; PULSE 75; RESP 18; O2SAT 99
== END 2023-11-04 10:00 | disposition left against medical advice (07) ==
LOC: ER 08:50
DX: M79.674 Pain in right toe(s) (principal); Z53.21 Procedure and treatment not carried out due to patient leaving prior to being seen by health care provider

== ENCOUNTER 2024-04-19 07:53 | Inpatient (IN) | payer OTHER ==
[2024-04-17 12:48] LABS: Basophils # (auto) 0 10 ^3/uL (0-0.2); Basophils % (auto) 0.3 % (0.0-2.0); Eosinophils # (auto) 0.2 10 ^3/uL (0-0.8); Eosinophils % (auto) 3.3 % (0.0-7.0); Hematocrit 41.8 % (36.0-46.0); Hemoglobin 13.9 g/dL (12.2-16.2); Lymphocytes # (auto) 1.6 10 ^3/uL (0.4-5.4); Lymphocytes % (auto) 22.1 % (10.0-50.0); Mean Corpuscular Hemoglobin 31.2 pg (28.0-32.0); Mean Corpuscular Hgb Conc. 33.2 g/dL (32.0-36.0); Mean Corpuscular Volume 93.9 fL (80.0-100.0); Monocytes # (auto) 0.6 10 ^3/uL (0-1.3); Monocytes % (auto) 8.2 % (0.0-12.0); Neutrophils # (auto) 4.8 10 ^3/uL (1.6-8.6); Neutrophils % (auto) 66.1 % (37.0-80.0); Platelet Count (auto) 231 10^3/uL (140-450); Red Blood Cells 4.45 10^6/uL (4.0-5.20); Red Cell Distribution Width 13.6 % (11.8-14.3); White Blood Cell 7.3 10^3/uL (4.4-10.8)
[2024-04-17 13:09] LABS: Alanine Aminotransferase 21 U/L (7-40); Alkaline Phosphatase 98 U/L (46-116); Anion Gap 6 (5-15); BUN/Creatinine Ratio 21.7 (10.0-20.0); Blood Urea Nitrogen 15 mg/dL (9-23); Calcium 9.8 mg/dL (8.7-10.4); Carbon Dioxide 27 mmol/L (20-31); Chloride 106 mmol/L (98-107); Glucose 94 mg/dL (74-106); Potassium 4.2 mmol/L (3.5-5.1); Sodium 139 mmol/L (136-145)
[2024-04-17 13:10] LABS: Albumin 4.2 g/dL (3.2-4.8); Aspartate Aminotransferase 14 U/L (13-40)
[2024-04-17 13:11] LABS: Bilirubin, Total 0.4 mg/dL (0.2-1.0); Total Protein 6.9 g/dL (5.7-8.2)
[2024-04-17 13:13] LABS: Urine Bacteria FEW /hpf (None Seen); Urine Blood Negative /uL (Negative); Urine Clarity Clear (Clear); Urine Color Yellow (Yellow); Urine Mucus FEW (None Seen); Urine Protein, UAD Negative (Negative); Urine Specific Gravity 1.024 (1.001-1.035); Urine Urobilinogen Normal (Negative); Urine WBC 1 /hpf (0 - 5); Urine pH 5.5 (5.0-9.0)
[2024-04-17 13:18] LABS: INR 0.96 (0.9-1.15); Partial Thromboplastin Time 29.4 SEC (24.5-34.5); Prothrombin Time 10.2 sec (9.3-11.8)
[~2024-04-19] VITALS: Ht 152.4 cm; Wt 100.5 kg
[~2024-04-19 07:53] MED LIST changes: -ALIR75IN2 SC; -CYCL0.05 EACHEYE; -FAMO-68 PO; -PRA1C PO; +PRAZ1CAP2 PO; -PREG50CA PO
[2024-04-19] MEDS: BUPIVACAINE HCL 50 ML ONE (08:43)
[2024-04-19] MEDS: ceFAZolin 2 GM/D5W100ml 100 ML IV ONE (08:46)
[2024-04-19] MEDS ORDERED: KETAMINE 50mg/ML 10ml Vial 10 ML ONE (09:30)
[2024-04-19] MEDS: SILVER NITRATE-POTAS NITRA STICK TOP ONE ×2 (09:34→09:45)
[2024-04-19] MEDS: ONDANSETRON HCL 4 MG/2 ML VIAL IV ONE (09:45)
[2024-04-19] MEDS ORDERED: ePHEDrine SULFATE 50 MG/ML AMP IV PRN (09:45)
[2024-04-19] MEDS ORDERED: DexAMETHasone SOD PHOS 10MG/1ML VIAL INJ ONE (10:14)
[2024-04-19] MEDS ORDERED: PROPOFOL 10 MG/ML 20 ML IV ONE (10:14)
[2024-04-19] MEDS: BACITRACIN TOP OINT 1 UD PKG TOP ONE (10:16)
--- NOTE | 2024-04-19 10:36 | DVHOP2 ---
Operative Report - 2 Report Details Date: 04/19/24 Preop Diagnosis: 1. Right foot hammer toes 1-5 2. Right foot tailors bunion 3. Right foot hallux ingrown nail 4. Left foot ingrown nail 1-5 Postop Diagnosis: Right foot hammer toes Right foot tailors bunion Right foot ingrown nails Surgeon: Shan Chamberlain MD Anesthesiologist: See anesthesia Anesthesia: General Implant: 1- 62 K-wire 3- for 5 Arthrex Nitinol K-wires Consent: The patient was informed of the risks and benefits of the procedure. These include but are not limited to complications of anesthesia, postoperative infection, incomplete relief of symptoms, recurrence of symptoms, damage to blood vessels, nerves and tendons, deep venous thrombosis, pulmonary embolism and possible need for repeat surgery in the future. Complications: None Estimated Blood Loss: Minimal Fluids: See anesthesia Findings: Consistent with diagnosis Indications for Surgery: Worsening bilateral foot pain Name of Procedure Performed 1. Right foot first hammer toe tenotomy repair 2. Right foot second hammer toe repair 3. Right foot third hammer toe repair 4. Right foot fourth hammer toe repair 5. Right foot fifth hammer toe repair 6. Right foot tailors bunion repair 7. Right hallux ingrown nail complete matrixectomy 8. Left hallux ingrown nail complete matrixectomy 9. Left second ingrown nail complete matrixectomy 10. Left third ingrown nail complete matrixectomy 11. Left fourth ingrown nail complete matrixectomy 12. Left fifth ingrown nail complete matrixectomy Procedure Details Procedure Details: PRE-PROCEDURE INFORMATION: In the pre-op holding area, the extremity to be operated on was clearly marked and the patient verified correct laterality of the marking. The patient was transferred to the OR table and placed in a supine position. A timeout was performed in which identification of the correct patient, procedure, location, and materials was done. The right foot and leg were prepped and draped in normal sterile fashion. The foot and leg were exsanguinated and the thigh tourniquet was inflated to 250 mmHg. DESCRIPTION OF PROCEDURE: Attention was directed to the right dorsal 2nd digit where a linear longitudinal incision was made over the proximal interphalangeal joint gaining access to the joint. The incision was deepened to the level of the extensor tendon. Soft tissue was released about the IPJ. The extensor tendon was transected at the level of the IPJ and using an oscillating saw, the head of the proximal phalanx was resected. Next, the base of the middle phalanx was also resected with an oscillating saw. A K-wire was driven from the distal digit to the level of the proximal phalanx. Utilizing intraoperative fluoroscopy, proper placement of the k-wire with adequate compression of the interphalangeal joint was noted. The end of the k-wire was clipped and bent at the tip, in anticipation that it will be removed in-office at a later time. It was noted on intraoperative fluoroscopy as well as clinically after this hammertoe was corrected that the digit was no longer contracted about the PIPJ or DIPJ Attention was directed to the right dorsal 3rd digit where a linear longitudinal incision was made over the proximal interphalangeal joint gaining access to the joint. The incision was deepened to the level of the extensor tendon. Soft tissue was released about the IPJ. The extensor tendon was transected at the le elier of the IPJ and using an oscillating saw, the head of the proximal phalanx was resected. Next, the base of the middle phalanx was also resected with an oscillating saw. A K-wire was driven from the distal digit to the level of the proximal phalanx. Utilizing intraoperative fluoroscopy, proper placement of the k-wire with adequate compression of the interphalangeal joint was noted. The end of the k- wire was clipped and bent at the tip, in anticipation that it will be removed in-office at a later time. It was noted on intraoperative fluoroscopy as well as clinically after this hammertoe was corrected that the digit was no longer contracted about the PIPJ or DIPJ Attention was directed to the right dorsal 4th digit where a linear longitudinal incision was made over the proximal interphalangeal joint gaining access to the joint. The incision was deepened to the level of the extensor tendon. Soft tissue was released about the IPJ. The extensor tendon was transected at the level of the IPJ and using an oscillating saw, the head of the proximal phalanx was resected. Next, the base of the middle phalanx was also resected with an o scillating saw. A K-wire was driven from the distal digit to the level of the proximal phalanx. Utilizing intraoperative fluoroscopy, proper placement of the k-wire with adequate compression of the interphalangeal joint was noted. The end of the k-wire was clipped and bent at the tip, in anticipation that it will be removed in-office at a later time. It was noted on intraoperative fluoroscopy as well as clinically after this hammertoe was corrected that the digit was no longer contracted about the PIPJ or DIPJ Attention was directed to the right dorsal 5th digit where a elliptical incision was made over the proximal interphalangeal joint gaining access to the joint. The incision was deepened to the level of the extensor tendon. Soft tissue was released about the IPJ. The extensor tendon was transected at the level of the IPJ and using an oscillating saw, the head of the proximal phalanx was resected. It was noted on intraoperative fluoroscopy as well as clinically after this hammertoe was corrected that the digit was no longer contracted about the PIPJ or DIPJ. Attention was directed to the right lateral fifth metatarsal head where a stab incision was made. This incision was deepened through blunt and sharp dissection. Care was taken to avoid damage to neurovascular structures throughout dissection. The incision was carried to the level of the fifth metatarsal head where on intraoperative fluoroscopy as well as preoperative x- rays, it was noted there was no significantly increased lateral deviation angle of the fifth metatarsal, but the lateral aspect of the fifth metatarsal head appeared to be prominent. This indicated that the patient would benefit from an ostectomy of the metatarsal head without osteotomy. Using an MIS bur, an osteotomy was made across the neck of the metatarsal head. Using a 0.62 K wire, the wire was then placed down the shaft of the 5th metatarsal holding the head in the appropriate position. It was noted on intraoperative fluoroscopy, there was significant reduction of deformity Attention was directed to the left 1st digit. Using a freer elevator, Ghanaian Anvil, and hemostat, the offending nail and/or nail border(s) was elevated and removed. Mild serous drainage noted, no purulent drainage. Non-viable tissue was removed with a curette. The nail base then treated with 3 applications of approximately 20-30 seconds of silver nitrate followed by neutralization with alcohol. Bacitracin, sterile gauze and Coban dressing was applied to the digit. Attention was directed to the left 2nd digit. Using a freer elevator, Ghanaian Anvil, and hemostat, the offending nail and/or nail border(s) was elevated and removed. Mild serous drainage noted, no purulent drainage. Non-viable tissue was removed with a curette. The nail base then treated with 3 applications of approximately 20-30 seconds of silver nitrate followed by neutralization with alcohol. Bacitracin, sterile gauze and Coban dressing was applied to the digit. Attention was directed to the left 3rd digit. Using a freer elevator, Ghanaian Anvil, and hemostat, the offending nail and/or nail border(s) was elevated and removed. Mild serous drainage noted, no purulent drainage. Non-viable tissue was removed with a curette. The nail base then treated with 3 applications of approximately 20-30 seconds of silver nitrate followed by neutralization with alcohol. Bacitracin, sterile gauze and Coban dressing was applied to the digit. Attention was directed to the left 4th digit. Using a freer elevator, Ghanaian Anvil, and hemostat, the offending nail and/or nail border(s) was elevated and removed. Mild serous drainage noted, no purulent drainage. Non-viable tissue was removed with a curette. The nail base then treated with 3 applications of approximately 20-30 seconds of silver nitrate followed by neutralization with alcohol. Bacitracin, sterile gauze and Coban dressing was applied to the digit. Attention was directed to the left 5th digit. Using a freer elevator, Ghanaian Anvil, and hemostat, the offending nail and/or nail border(s) was elevated and removed. Mild serous drainage noted, no purulent drainage. Non-viable tissue was removed with a curette. The nail base then treated with 3 applications of approximately 20-30 seconds of silver nitrate followed by neutralization with alcohol. Bacitracin, sterile gauze and Coban dressing was applied to the digit. Attention was directed to the right 1st digit. Using a freer elevator, Ghanaian Anvil, and hemostat, the offending nail and/or nail border(s) was elevated and removed. Mild serous drainage noted, no purulent drainage. Non-viable tissue was removed with a curette. The nail base then treated with 3 applications of approximately 20-30 seconds of silver nitrate followed by neutralization with alcohol. Bacitracin, sterile gauze and Coban dressing was applied to the digit. All surgical wounds were irrigated copiously with saline and closed in layers with the aforementioned suture material. A dry sterile dressing was placed on the surgical extremity. The patient was placed in a postop shoe. POSTOPERATIVE INFORMATION: The patient tolerated the above noted procedure and anesthesia well and was transferred to the PACU with vital signs stable, and vascular status intact with capillary refill intact to all digits. Postoperative instructions reviewed in detail with the patient with written instructions provided. Patient will return to clinic in approximately 10-14 days for first postoperative visit. Patient has the number of the clinic and was instructed to call prior to that time should any problems, questions, or concerns arise. Condition Good Disposition Home SHAN CHAMBERLAIN DPM Apr 19, 2024 10:36
[2024-04-19 10:42] VITALS: O2SAT 98
[2024-04-19] MEDS: HYDROmorphone HCL 2 MG/ML VL/or syr IV PRN ×2 (10:46→15:58)
[2024-04-19] MEDS: KETOROLAC TROMETH 30 MG/ML 1ML VIAL ONE (11:04)
[2024-04-19] MEDS: ACETAMINOPHEN IV 100 ML IV ONE (11:04)
[2024-04-19] MEDS: KETOROLAC TROMETH 30 MG/ML 1ML VIAL IV ONE (11:10)
[2024-04-19] MEDS: ACETAMINOPHEN IV 1000 MG/100ML (10MG/ML) IV ONE (11:10)
[2024-04-19] MEDS: PREGABALIN 25 MG CAP PO ONE (12:00)
[2024-04-19] MEDS: PREGABALIN 25 MG CAP ONE (12:02)
[2024-04-19] MEDS ORDERED: MORPHINE SULFATE INJ 2 MG/ml SYRG IV PRN (14:00)
[2024-04-19] MEDS ORDERED: LIDOCAINE 5% TOPICAL PATCH TOP PRN (14:00)
[2024-04-19] MEDS ORDERED: NITROGLYCERIN 0.4 MG SL TAB SL PRN (14:00)
--- NOTE | 2024-04-19 14:06 | DVHHP2 ---
History of Present Illness Reason for Visit: Elective surgery for right foot correction of hammertoes as well as in History of Present Illness The patient was a 68-year-old female being admitted to the hospital after having elective surgery of her right foot which included correction of ingrown toenails as well as surgical correction of hammertoes. Postoperatively the patient was noted to have severe pain to her right foot. Patient had been medicated with different modalities, and given the patient's home situation of living alone, the patient was being evaluated for admission to the hospital for further monitoring. While in the PACU, the patient was also found to have periods of bradycardia, for which I witnessed myself for the patient to have a heart rate dropping into the 30s in addition to appreciating a second-degree type 2 heart block. For this reason alone in addition to pain management the patient was admitted to the telemetry floor. Cardiovascular: HTN Pulmonary: Asthma Rheumatologic: Other (Sjogren's disease,? Multiple sclerosis) Family History: None Smoke: No ALCOHOL: none Lives: Alone Review of Systems Constitutional: No: Fever, Chills, Sweats, Weakness, Malaise, Other ENT: No: Ear pain, Ear discharge, Nose pain, Nose discharge, Nose congestion, Mouth pain, Mouth swelling, Throat pain, Throat swelling, Other Respiratory: No: Cough, Dry, Shortness of breath, SOB with excertion, Wheezing, Hemoptysis, Pleuritic Pain, Sputum, Wheezing, Other Cardiovascular: No: Chest Pain, Palpitations, Orthopnea, Paroxysmal Noc. Dyspnea, Edema, Lt Headedness, Other Skin: Other (Pain to right foot) Neurological: No: Weakness, Numbness, Incoordination, Change in speech, Confusion, Seizures, Other Allergies: Coded Allergies: Barium Sulfate (Verified Allergy, Severe, THROAT SWELLING, WHEEZING, 10/30/20) Diatrizoate (Verified Allergy, Severe, THROAT SWELLING, WHEEZING, 10/30/20) Doxycycline (Verified Allergy, Severe, THROAT SWELLING, WHEEZING, 10/30/20) Hydralazine (Verified Allergy, Severe, WHEEZING, 10/30/20) CHEST TIGHTNESS Lovastatin (Verified Allergy, Severe, DIFF. BREATHING, 10/30/20) Meperidine (Verified Allergy, Severe, DIFF. BREATHING, 10/30/20) Methylene Blue (Verified Allergy, Severe, DIFF. BREATHING, 10/30/20) Nitrous Oxide (Verified Allergy, Severe, DIFF. BREATHING, 10/30/20) Opium (Verified Allergy, Severe, OPIATES, 10/30/20) DIFF. BREATHING Oxycodone (Verified Allergy, Severe, DIFF. BREATHING, 10/30/20) Penicillin V (Verified Allergy, Severe, ANAPHYLAXSIS, 10/30/20) Prochlorperazine (Verified Allergy, Severe, DIFF. BREATHING, 10/30/20) Promethazine (Verified Allergy, Severe, DIFF. BREATHING, 10/30/20) Sulfa Antibiotics (Verified Allergy, Severe, DIFF. BREATHING, 10/30/20) Tramadol (Verified Allergy, Severe, DIFF. BREATHING, 10/30/20) Lisinopril (Verified Allergy, Intermediate, THROAT SWELLING, WHEEZING, 10/30/20) Fentanyl (Verified Adverse Reaction, Severe, SEVERE VOMITING, 10/30/20) Exam Vital Signs Vital Signs Date Time Temp Pulse Resp B/P (MAP) Pulse Ox O2 Delivery O2 Flow Rate FiO2 04/19/24 08:45 97.5 89 17 167/75 (105) 96 97.5 General Appearance: Alert, Other (Somnolent) HEENT: Atraumatic, PERRLA Respiratory: Clear to auscultation, Normal air movement Cardiovascular: Normal S1, Normal S2, Other (Sinus rhythm with periods of sinus bradycardia with a second-degree type 2 heart block) Abdominal: Normal bowel sounds Psych/Mental Status: Mental status NL, Mood NL Labs/Xrays Labs Test 04/17/24 12:29 Range/Units White Blood Count 7.3 4.4-10.8 10^3/uL Red Blood Count 4.45 4.0-5.20 10^6/uL Hemoglobin 13.9 12.2-16.2 g/dL Hematocrit 41.8 36.0-46.0 % Mean Corpuscular Volume 93.9 80.0-100.0 fL Mean Corpuscular Hemoglobin 31.2 28.0-32.0 pg Mean Corpuscular Hemoglobin Concent 33.2 32.0-36.0 g/dL Red Cell Distribution Width 13.6 11.8-14.3 % Platelet Count 231 140-450 10^3/uL Mean Platelet Volume 8.2 6.9-10.8 fL Neutrophils (%) (Auto) 66.1 37.0-80.0 % Lymphocytes (%) (Auto) 22.1 10.0-50.0 % Monocytes (%) (Auto) 8.2 0.0-12.0 % Eosinophils (%) (Auto) 3.3 0.0-7.0 % Basophils (%) (Auto) 0.3 0.0-2.0 % Neutrophils # (Auto) 4.8 1.6-8.6 10 ^3/uL Lymphocytes # (Auto) 1.6 0.4-5.4 10 ^3/uL Monocytes # (Auto) 0.6 0-1.3 10 ^3/uL Eosinophils # (Auto) 0.2 0-0.8 10 ^3/uL Basophils # (Auto) 0 0-0.2 10 ^3/uL Nucleated Red Blood Cells 0.0 % Prothrombin Time 10.2 9.3-11.8 sec Prothrombin Time INR 0.96 0.9-1.15 Activated Partial Thromboplast Time 29.4 24.5-34.5 SEC Urine Color Yellow Yellow Urine Clarity Clear Clear Urine pH 5.5 5.0-9.0 Urine Specific [place] 1.024 1.001-1.035 Urine Protein Negative Negative Urine Ketones Negative Negative Urine Blood Negative Negative /uL Urine Nitrite Negative Negative Urine Bilirubin Negative Negative Urine Urobilinogen Normal Negative mg/dL Urine Leukocyte Esterase Negative Negative /uL Urine RBC 1 0 - 4 /hpf Urine WBC 1 0 - 5 /hpf Urine Squamous Epithelial Cells Few <5 /hpf Urine Bacteria Few H None Seen /hpf Urine Mucus Few None Seen Urine Glucose Normal Normal mg/dL Sodium Level 139 136-145 mmol/L Potassium Level 4.2 3.5-5.1 mmol/L Chloride Level 106 98-107 mmol/L Carbon Dioxide Level 27 20-31 mmol/L Anion Gap 6 5-15 Blood Urea Nitrogen 15 9-23 mg/dL Creatinine 0.69 0.550-1.02 mg/dL Glomerular Filtration Rate Calc 95 >90 mL/min BUN/Creatinine Ratio 21.7 H 10.0-20.0 Serum Glucose 94 74-106 mg/dL Calcium Level 9.8 8.7-10.4 mg/dL Total Bilirubin 0.4 0.2-1.0 mg/dL Aspartate Amino Transferase (AST) 14 13-40 U/L Alanine Aminotransferase (ALT) 21 7-40 U/L Alkaline Phosphatase 98 46-116 U/L Total Protein 6.9 5.7-8.2 g/dL Albumin 4.2 3.2-4.8 g/dL Assessment/Plan Assessment/Plan Impression: -status post right foot surgery for correction of hammertoe and ingrown toenails -obesity -primary hypertension -severe pain to right foot, chronic pain -? Sjogren's disease -second-degree type 2 heart block. Appreciated in PACU. Discussed with nurse to attempt to Bartolo drip Plan: -admit to telemetry floor -12 lead ECG -pain management -postop antibiotic therapy -reassess for discharge in a.m. Total time spent with patient discussing and formulating plan of care: 35 minutes. This medical document was created using an electronic medical record system with [employer] system. Although this document has been carefully reviewed, there may still be some phonetic and typographical errors. These areas are purely typographical due to imperfections of the software programs, and do not reflect any compromise in the patient's medical care. Plan discussed with: Patient, Other (RN) My Orders Orders - SANJUANITA KWOK [employer] Procedure Category Date Status Time Admit ADMIT 04/19/24 Verified 13:54 Nitroglycerin PHA 04/19/24 Verified Sublingual (Ntrostat 14:00 Morphine Sulfate PHA 04/19/24 Verified Injection 14:00 Stat Ekg For Chest [facility] 04/19/24 Verified Pain 13:54 Notify Md Of Changes [facility] 04/19/24 Verified From Base 13:54 Resident In Diagnostic Radiology For [facility] 04/19/24 Verified 24 Hours 13:54 Emergency Dysrhythmia [facility] 04/19/24 Verified Protocol 13:54 Rhythm Strips Once [facility] 04/19/24 Verified Every Shift 13:54 Oxygen By Nasal RT 04/19/24 Verified Cannula 13:54 Furosemide Tablet PHA 04/19/24 Verified (Lasix Tablet) 22:00 Lidocaine 5% Topical PHA 04/19/24 Verified Patch (Lidoderm 5% 14:00 Spironolactone PHA 04/19/24 Verified (Aldactone) 22:00 Hydromorphone PHA 04/19/24 Verified Injection (Dilaudid 14:00 Electrocardigram EKG 04/19/24 Verified 13:54 Cardiac DIET 04/19/24 Verified Diet-2gna,Lofat,Lochol Dinner Date of Service: Apr 19, 2024 Billing Provider: SANJUANITA KWOK NP Common Visit Codes: [id number] INP/OBS CARE (HIGH) SANJUANITA KWOK NP Apr 19, 2024 14:06
[2024-04-19] MEDS: ONDANSETRON HCL 4 MG/2 ML VIAL IV PRN (15:56)
[2024-04-19] MEDS: ONDANSETRON HCL 4 MG/2 ML VIAL ONE (17:36)
[2024-04-19 17:45] VITALS: BP 157/62; PULSE 54; RESP 18; TEMP 97.3; O2SAT 97
[2024-04-19] MEDS ORDERED: CEPHALEXIN 250 MG CAP PO SCH (18:00)
[2024-04-19 20:00] VITALS: PULSE 51; PULSE 54; RESP 20; O2SAT 98
[2024-04-19 21:00] VITALS: BP 137/71; PULSE 51; RESP 21; TEMP 97.6; O2SAT 99
[2024-04-19] MEDS: PREGABALIN 25 MG CAP PO SCH (22:00)
[2024-04-19] MEDS: SPIRONOLACTONE 25 MG TAB PO SCH (22:25)
[2024-04-19] MEDS: FUROSEMIDE 40 MG TAB PO SCH (22:25)
[2024-04-20] VITALS (9 sets, daily range): BP systolic 116–137; BP diastolic 52–65; PULSE 63–74; RESP 17–20; TEMP 97.3–98.5; O2SAT 92–98
[2024-04-20] MEDS: KETOROLAC TROMETH 30 MG/ML 1ML VIAL IV ONE (00:53)
--- NOTE | 2024-04-20 15:07 | DVHINCON2 ---
Date Seen: Apr 20, 2024 Referring Physician MD Larry Reason for Consultation Bradycardia History of Present Illness This is a 68-year-old female patient who was admitted to this facility status post elective surgery to her bilateral feet. The patient underwent surgical revision including hammertoe, bunion an ingrown nail repairs. Postoperatively, the patient was noted to be bradycardiac. The patient was then admitted to the hospital for further evaluation. Initial twelve lead electrocardiogram reveals sinus bradycardia without any significant ST segment changes. After reviewing continuous monitor technician, the patient is noted to have multiple episodes where she goes into sinus bradycardia with second degree type II heart block. The patient also reports feeling dizzy since her procedure. Significant past medical history includes hypertension, hyperlipidemia, GERD, asthma, Sjogren's syndrome, chronic back pain, and morbid obesity. After reviewing the patient's medication list, the patient does not take any beta-blockers at home. The patient follows up with bit shaver Dr. Capellan in the outpatient setting. Past Medical History Past medical history reviewed. No other significant than mentioned above. Past Surgical History Left shoulder surgery Right foot hammertoe repair Right foot hallux ingrown nail repair Left foot a ingrown nail repair Family History: Family history: Cardiovascular disease G8 MOTHER G8 FATHER Melanoma G8 MOTHER G8 FATHER Family History Family history reviewed. Social History Denies the use of tobacco, alcohol or illicit drugs. Allergies: Coded Allergies: Barium Sulfate (Verified Allergy, Severe, THROAT SWELLING, WHEEZING, 10/30/20) Diatrizoate (Verified Allergy, Severe, THROAT SWELLING, WHEEZING, 10/30/20) Doxycycline (Verified Allergy, Severe, THROAT SWELLING, WHEEZING, 10/30/20) Hydralazine (Verified Allergy, Severe, WHEEZING, 10/30/20) CHEST TIGHTNESS Lovastatin (Verified Allergy, Severe, DIFF. BREATHING, 10/30/20) Meperidine (Verified Allergy, Severe, DIFF. BREATHING, 10/30/20) Methylene Blue (Verified Allergy, Severe, DIFF. BREATHING, 10/30/20) Nitrous Oxide (Verified Allergy, Severe, DIFF. BREATHING, 10/30/20) Opium (Verified Allergy, Severe, OPIATES, 10/30/20) DIFF. BREATHING Oxycodone (Verified Allergy, Severe, DIFF. BREATHING, 10/30/20) Penicillin V (Verified Allergy, Severe, ANAPHYLAXSIS, 10/30/20) Prochlorperazine (Verified Allergy, Severe, DIFF. BREATHING, 10/30/20) Promethazine (Verified Allergy, Severe, DIFF. BREATHING, 10/30/20) Sulfa Antibiotics (Verified Allergy, Severe, DIFF. BREATHING, 10/30/20) Tramadol (Verified Allergy, Severe, DIFF. BREATHING, 10/30/20) Lisinopril (Verified Allergy, Intermediate, THROAT SWELLING, WHEEZING, 10/30/20) Fentanyl (Verified Adverse Reaction, Severe, SEVERE VOMITING, 10/30/20) Home Meds Reported Medications Sucralfate (Carafate) 1 Gm/10 Ml Inge, 1 GM PO BID, ML 12/07/22 Omeprazole (Gnp Omeprazole) 20 Mg Tab, 40 MG PO HS, TAB 12/07/22 Prazosin Hcl (Minipres) 1 Mg Cp, 1 MG PO HS, CAP 12/07/22 Pramipexole Dihydrochloride (Pramipexole Dihydrochlori) 0.75 Mg Tab, 1 MG PO HS, #3 TAB 12/07/22 Lidocaine (LIDODERM 5% TOPICAL PATCH) 1 Patch Ph, 1 PATCH TOP PRN, PATCH 06/03/21 Ondansetron (Zofran) 4 Mg Tab, 8 MG PO BID, TAB 06/03/21 Cholecalciferol (VITAMIN D3) 5,000 Unit Cap, 1 CAP PO HS for SUPPLEMENT 10/30/20 Spironolactone (Spironolactone) 25 Mg Tab, 1 TAB PO BIDPRN 10/30/20 Furosemide (Furosemide) 40 Mg Tab, 1 TAB PO BIDP 10/30/20 Dimethyl Fumarate (TECFIDERA) 240 Mg Cap, 1 CAP PO BID for MS 10/30/20 Epinephrine Hcl (Anaphylaxis) (Epipen) 0.3 Mg Inj, 0.3 MG IM PRN PRN for ALLERGIC REACTION 07/05/15 Estradiol (Estrace) 0.5 Mg Tab, 2 TAB PO HS for POST-MENOPAUSAL 07/05/15 Home Meds Home medications reviewed. Current Medications Current Medications Medications (Trade) Dose Ordered Sig/Krysta Route PRN Reason Start Time Stop Time Status Last Admin Furosemide (Lasix Tablet) 40 mg BIDP PO 04/19/24 22:00 04/20/24 09:26 Spironolactone (Aldactone) 25 mg BIDPRN PO 04/19/24 22:00 04/20/24 09:26 Pregabalin (Lyrica Capsule) 25 mg BID PO 04/19/24 22:00 04/20/24 09:26 Cephalexin (Keflex Capsule) 500 mg Q6HR PO 04/19/24 18:00 Hold Ondansetron HCl (Zofran) 4 mg Q6HPRN PRN IV NAUSEA / VOMITING 04/19/24 16:00 04/20/24 12:40 Review of Systems Constitutional: No symptom reported Ears, Nose, & Throat: No symptom reported Eyes: No symptom reported Neurological: Dizziness Pulmonary/Respiratory: No symptoms reported Cardiovascular: No symptom reported Gastrointestinal: No symptom reported Genitourinary: No symptom reported Musculoskeletal: No symptom reported Skin: No symptom reported Psychiatric: No symptom reported Endocrine: No symptom reported Hematologic/Lymphatic: No symptom reported Vital Signs Vital Signs Date Time Temp Pulse Resp B/P (MAP) Pulse Ox O2 Delivery O2 Flow Rate FiO2 04/20/24 12:40 65 18 130/59 04/20/24 08:10 97 Nasal Cannula* 1 04/20/24 05:00 97.9 97.9 Physical Exam General Appearance: Cooperative. Morbidly obese Pulmonary/Respiratory: Clear, bilateral breaths sounds. Cardiovascular/Chest: Regular rate and rhythm. Peripheral Pulses: 2+ Radial (R). 2+ Radial (L). 2+ Pedal (R). 2+ Pedal (L) Abdominal Exam: Normal bowel sounds. Ankle Exam: Negative ankle edema Lower extremities: Negative lower extremity edema Neuro/Mental Status: A/OX4, coherent. Thoughts/Psych: Normal thought pattern. Appropriate mood and affect. Good judgment and insight. Appearance: No acute distress. Skin Exam: Dressings to bilateral feet. Skin warm and dry. Labs/Diagnostic Data Labs Test 04/17/24 12:29 Range/Units White Blood Count 7.3 4.4-10.8 10^3/uL Red Blood Count 4.45 4.0-5.20 10^6/uL Hemoglobin 13.9 12.2-16.2 g/dL Hematocrit 41.8 36.0-46.0 % Mean Corpuscular Volume 93.9 80.0-100.0 fL Mean Corpuscular Hemoglobin 31.2 28.0-32.0 pg Mean Corpuscular Hemoglobin Concent 33.2 32.0-36.0 g/dL Red Cell Distribution Width 13.6 11.8-14.3 % Platelet Count 231 140-450 10^3/uL Mean Platelet Volume 8.2 6.9-10.8 fL Neutrophils (%) (Auto) 66.1 37.0-80.0 % Lymphocytes (%) (Auto) 22.1 10.0-50.0 % Monocytes (%) (Auto) 8.2 0.0-12.0 % Eosinophils (%) (Auto) 3.3 0.0-7.0 % Basophils (%) (Auto) 0.3 0.0-2.0 % Neutrophils # (Auto) 4.8 1.6-8.6 10 ^3/uL Lymphocytes # (Auto) 1.6 0.4-5.4 10 ^3/uL Monocytes # (Auto) 0.6 0-1.3 10 ^3/uL Eosinophils # (Auto) 0.2 0-0.8 10 ^3/uL Basophils # (Auto) 0 0-0.2 10 ^3/uL Nucleated Red Blood Cells 0.0 % Prothrombin Time 10.2 9.3-11.8 sec Prothrombin Time INR 0.96 0.9-1.15 Activated Partial Thromboplast Time 29.4 24.5-34.5 SEC Urine Color Yellow Yellow Urine Clarity Clear Clear Urine pH 5.5 5.0-9.0 Urine Specific [place] 1.024 1.001-1.035 Urine Protein Negative Negative Urine Ketones Negative Negative Urine Blood Negative Negative /uL Urine Nitrite Negative Negative Urine Bilirubin Negative Negative Urine Urobilinogen Normal Negative mg/dL Urine Leukocyte Esterase Negative Negative /uL Urine RBC 1 0 - 4 /hpf Urine WBC 1 0 - 5 /hpf Urine Squamous Epithelial Cells Few <5 /hpf Urine Bacteria Few H None Seen /hpf Urine Mucus Few None Seen Urine Glucose Normal Normal mg/dL Sodium Level 139 136-145 mmol/L Potassium Level 4.2 3.5-5.1 mmol/L Chloride Level 106 98-107 mmol/L Carbon Dioxide Level 27 20-31 mmol/L Anion Gap 6 5-15 Blood Urea Nitrogen 15 9-23 mg/dL Creatinine 0.69 0.550-1.02 mg/dL Glomerular Filtration Rate Calc 95 >90 mL/min BUN/Creatinine Ratio 21.7 H 10.0-20.0 Serum Glucose 94 74-106 mg/dL Calcium Level 9.8 8.7-10.4 mg/dL Total Bilirubin 0.4 0.2-1.0 mg/dL Aspartate Amino Transferase (AST) 14 13-40 U/L Alanine Aminotransferase (ALT) 21 7-40 U/L Alkaline Phosphatase 98 46-116 U/L Total Protein 6.9 5.7-8.2 g/dL Albumin 4.2 3.2-4.8 g/dL Assessment Sinus bradycardia with intermittent second degree type II AV block Hypertension Hyperlipidemia Sjogren's syndrome Obstructive sleep apnea Morbid obesity Plan/Recommendation We will continue with the following plan/recommendations (Dr. Capellan) We will proceed with obtaining a transthoracic echocardiogram to evaluate cardiac function. Case reviewed and discussed with . Given that the patient is going into a high degree AV block, we will recommend for the patient to undergo permanent pacemaker insertion. The procedure was discussed with the patient full detail including risks and benefits. The patient understands and is agreeable to undergo procedure. We will schedule the patient at first availability on 04/21/2024. In the meantime, we will recommend to avoid AV juan m blocking agents. Thank you for allowing us to care for this patient. Please call with any questions or concerns. Critical care time spent: 41 minutes This medical document was created using an electronic medical record system with voice recognition software and computerized dictation system. Although this document has been carefully reviewed, there might still be some phonetic and typographical errors. Occasional wrong-word or ``sound-alike substitutions may have occurred due to the inherent limitations of voice recognition software. These areas are purely typographical due to imperfections of the software programs and do not reflect any compromise in the patient's medical care. Please read the chart carefully and recognize, using context, where these substitutions have occurred. Plan discussed with: Patient Date of Service: Apr 20, 2024 Billing Provider: MARLON CAPELLAN Sr., MD Cardiology Common Codes: [id number] INP/OBS CARE (High) Cardiology Consultation Codes: [id number] CONSULT <45MIN SANDRA CONKLIN Apr 20, 2024 15:07
--- NOTE | 2024-04-20 16:58 | DVHPN2 ---
Subjective Seen and examined at bedside, POD1 s/p bilateral feet surgery by Dr. Barbosa. Patient is now having bradycardia, cardio eval done. Need PPM tomorrow. Changes from previous H/P or p: No Changes ENT: No Ear pain, No Ear discharge, No Nose pain, No Nose discharge, No Nose congestion, No Mouth pain, No Mouth swelling, No Throat pain, No Throat swelling, No Other Cardiovascular: No Chest Pain, No Palpitations, No Orthopnea, No Paroxysmal Noc. Dyspnea, No Edema, No Lt Headedness, No Other Respiratory: No Cough, No Dry, No Shortness of breath, No SOB with excertion, No Wheezing, No Hemoptysis, No Pleuritic Pain, No Sputum, No Other Objective Vitals Vital Signs Date Time Temp Pulse Resp B/P (MAP) Pulse Ox O2 Delivery O2 Flow Rate FiO2 04/20/24 13:10 54 16 116/59 04/20/24 13:00 97.3 95 97.3 04/20/24 08:10 Nasal Cannula* 1 24 Intake/Output Intake and Output 04/20/24 07:00 Intake Total 900 ml Output Total 1900 ml Balance -1000 ml Intake Oral 800 ml IV Total 100 ml Output Urine Total 1900 ml Medications Current Medications Medications Dose Ordered Sig/Krysta Route Start Time Stop Time Status Last Admin Dose Admin Nitroglycerin 0.4 mg Q5MINP PRN SL 04/19/24 14:00 Morphine Sulfate 2 mg Q30M PRN IV 04/19/24 14:00 Furosemide 40 mg BIDP PO 04/19/24 22:00 04/20/24 09:26 40 MG Lidocaine 1 patch DAILY PRN TOP 04/19/24 14:00 Spironolactone 25 mg BIDPRN PO 04/19/24 22:00 04/20/24 09:26 25 MG Hydromorphone HCl 0.25 mg Q3HPRN PRN IV 04/19/24 14:00 04/20/24 12:40 0.25 MG Pregabalin 25 mg BID PO 04/19/24 22:00 04/20/24 09:26 25 MG Cephalexin 500 mg Q6HR PO 04/19/24 18:00 Hold Ondansetron HCl 4 mg Q6HPRN PRN IV 04/19/24 16:00 12/5/24 12:40 4 MG Laboratory Results Laboratory Tests 04/17/24 12:29 Urinalysis Test 04/17/24 12:29 Urine Color Yellow (Yellow) Urine Clarity Clear (Clear) Urine pH 5.5 (5.0-9.0) Urine Specific [place] 1.024 (1.001-1.035) Urine Protein Negative (Negative) Urine Ketones Negative (Negative) Urine Blood Negative /uL (Negative) Urine Nitrite Negative (Negative) Urine Bilirubin Negative (Negative) Urine Urobilinogen Normal mg/dL (Negative) Urine Leukocyte Esterase Negative /uL (Negative) Urine RBC 1 /hpf (0 - 4) Urine WBC 1 /hpf (0 - 5) Urine Squamous Epithelial Cells Few /hpf (<5) Urine Bacteria Few /hpf (None Seen) H Urine Mucus Few (None Seen) Urine Glucose Normal mg/dL (Normal) Assessment/Plan Assessment/Plan -status post right foot surgery for correction of hammertoe and ingrown toenails -Bradycardia- PPM tomorrow -obesity -primary hypertension -severe pain to right foot, chronic pain -Multiple Sclerosis- self cath at home -Goals of care-FULL CODE Plan discussed with: Patient My Orders Orders - JESSEE JOHNSTON MD Procedure Category Date Status Time Electrocardigram EKG 04/20/24 Logged 13:29 * Cardiology Consult CONS 04/20/24 Transmitted 13:29 Spironolactone PHA 04/20/24 Logged (Aldactone) 22:00 Oob To Chair OZZIE 04/20/24 In Process 16:50 Incentive Spirometry ORDERS 04/20/24 Transmitted Q 1hr 16:50 Thyroid Stimulating LAB 04/20/24 Logged Hormone 16:50 Magnesium LAB 04/20/24 Logged 16:50 Date of Service: Apr 20, 2024 Billing Provider: JESSEE JOHNSTON MD Common Visit Codes: [id number] INP/OBS CARE(HIGH) JESSEE JOHNSTON MD Apr 20, 2024 16:58
--- NOTE | 2024-04-20 17:39 | DVHSR ---
APPROVED REPORT EXAM: Two-dimensional and M-mode echocardiogram with Doppler and color Doppler. Blood Pressure: 116/59 mmHg INDICATION Eval for cardiac function RISK FACTORS Height: 60, Weight: 214 DIMENSIONS LVDd4.6 (3.8-5.7cm)LA (2D)3.5 (1.9-4.0cm)Aortic Root3.0 (2.0-3.7cm) LVDs3.1 (2.5-4.0cm)LA (MM) (1.9-4.0cm)Aortic Cusp Exc1.1 (1.5-2.0cm) EF (%) 60.0 (55-70%)Rt. Atrium3.7 (1.9-4.0cm)Asc. Aorta cm IVSd1.1 (0.7-1.1cm)RV (D) (1.8-2.4cm) PWd1.1 (0.7-1.1cm) Mitral Valve MitralMitral Stenosis E wave1.08m/sMV Mean GR.mmHg A wave0.71m/sMV Peak GR.mmHg E/A ratio1.52D MVAcm2 DECEL [id number] 1/2 [id number] IVRTmsDop MVA2.36cm2 Aortic Valve Aortic ValveAortic Stenosis V11.31m/Nati Mean GR.12mmHg V22.42m/Nati Peak GR.23mmHg LVOT Diameter1.7 (1.8-2.4cm)Doppler AVA1.23cm2 AI P 1/2 Swoc725.43ms Pulmonic Valve V20.87m/s Tricuspid Valve TR Velocity2.13m/s [id number] Conclusion Technically good study. Sinus bradycardia. Mild aortic sclerosis. Normal chamber sizes. EF is 60% with normal RV function. Dblc-no-noienzal aortic insufficiency. Mild tricuspid regurgitation. No pericardial effusion masses or vegetations discernible.
[2024-04-20] MEDS: SPIRONOLACTONE 25 MG TAB PO SCH (21:43)
[2024-04-21] VITALS (13 sets, daily range): BP systolic 114–155; BP diastolic 58–79; PULSE 63–78; RESP 11–20; TEMP 97.2–98.8; O2SAT 94–98
[2024-04-21 07:11] LABS: INR 0.97 (0.9-1.15); Partial Thromboplastin Time 27.8 SEC (24.5-34.5); Prothrombin Time 10.3 sec (9.3-11.8)
[2024-04-21 07:15] LABS: Basophils # (auto) 0 10 ^3/uL (0-0.2); Basophils % (auto) 0.1 % (0.0-2.0); Eosinophils # (auto) 0.2 10 ^3/uL (0-0.8); Eosinophils % (auto) 1.4 % (0.0-7.0); Hematocrit 40.5 % (36.0-46.0); Hemoglobin 13.6 g/dL (12.2-16.2); Lymphocytes # (auto) 1.9 10 ^3/uL (0.4-5.4); Mean Corpuscular Hemoglobin 31.3 pg (28.0-32.0); Mean Corpuscular Hgb Conc. 33.5 g/dL (32.0-36.0); Mean Corpuscular Volume 93.3 fL (80.0-100.0); Monocytes % (auto) 8.8 % (0.0-12.0); Neutrophils # (auto) 8.2 10 ^3/uL (1.6-8.6); Neutrophils % (auto) 72.7 % (37.0-80.0); Platelet Count (auto) 236 10^3/uL (140-450); Red Blood Cells 4.34 10^6/uL (4.0-5.20); Red Cell Distribution Width 13.8 % (11.8-14.3); White Blood Cell 11.2 10^3/uL (4.4-10.8)
[2024-04-21 07:16] LABS: Anion Gap 8 (5-15); Carbon Dioxide 31 mmol/L (20-31); Chloride 103 mmol/L (98-107); Sodium 142 mmol/L (136-145)
[2024-04-21 07:17] LABS: Calcium 9.7 mg/dL (8.7-10.4); Potassium 3.5 mmol/L (3.5-5.1)
[2024-04-21 07:22] LABS: BUN/Creatinine Ratio 15.3 (10.0-20.0); Blood Urea Nitrogen 15 mg/dL (9-23); Glucose 90 mg/dL (74-106)
[2024-04-21] MEDS: PRAMIPEXOLE DIHYDROCHLORIDE MO 0.25 MG TAB PO SCH (12:10)
--- NOTE | 2024-04-21 13:13 | DVHPN2 ---
Consult Progress Note Date Seen: Apr 21, 2024 Subjective Review of Systems: CVS:Normal, RESPIRATORY:Normal, NEURO:Normal Other Systems: C/o generalized weakness and some fatigue Objective vital signs Vital Sign Date Time Temp Pulse Resp B/P (MAP) Pulse Ox O2 Delivery O2 Flow Rate FiO2 04/21/24 09:06 130/70 04/21/24 09:00 98.7 72 20 95 98.7 04/21/24 08:00 Room Air* 0 21 Total Intake and Output 04/20/24 04/20/24 04/21/24 15:00 23:00 07:00 Intake Total 240 ml 1080 ml 2700 ml Output Total 700 ml 2900 ml Balance 240 ml 380 ml -200 ml medications Current Medications Medications Dose Ordered Sig/Krysta Route Start Time Stop Time Status Last Admin Dose Admin Nitroglycerin 0.4 mg Q5MINP PRN SL 04/19/24 14:00 Morphine Sulfate 2 mg Q30M PRN IV 04/19/24 14:00 Furosemide 40 mg BIDP PO 04/19/24 22:00 04/21/24 09:06 40 MG Lidocaine 1 patch DAILY PRN TOP 04/19/24 14:00 Hydromorphone HCl 0.25 mg Q3HPRN PRN IV 04/19/24 14:00 04/20/24 12:40 0.25 MG Pregabalin 25 mg BID PO 04/19/24 22:00 04/21/24 09:06 25 MG Cephalexin 500 mg Q6HR PO 04/19/24 18:00 Hold Ondansetron HCl 4 mg Q6HPRN PRN IV 04/19/24 16:00 04/20/24 19:42 4 MG Spironolactone 25 mg BID PO 04/20/24 22:00 04/21/24 09:05 25 MG Pramipexole Dihydrochloride 1 mg DAILY PO 04/21/24 10:00 04/21/24 12:10 1 MG Examination: LUNGS:Normal, NEURO:Normal laboratory and microbiology Laboratory Tests 04/21/24 06:21 Test 04/21/24 06:21 Range/Units Serum Glucose 90 74-106 mg/dL Problem List/Assessment/Plan Problem List/Assessment/Plan /Sinus bradycardia with intermittent second degree type II AV block Hypertension Hyperlipidemia Sjogren's syndrome Obstructive sleep apnea Morbid obesity Plan/Recommendation (Dr. Capellan) Transthoracic echocardiogram revealed EF 60% with normal RV function. There is mild to moderate aortic insufficiency. Scheduled for permanent pacemaker insertion later on today. In the meantime, we will recommend to avoid AV juan m blocking agents. Patient is to follow-up on 04/28/24 at 0830 for wound check. On 05/22/23 at 1000 for pacemaker interrogation. On 05/26/[address] Capellan for routine follow-up. Thank you for allowing us to care for this patient. Please call with any questions or concerns. This medical document was created using an electronic medical record system with voice recognition software and computerized dictation system. Although this document has been carefully reviewed, there might still be some phonetic and typographical errors. Occasional wrong-word or ``sound-alike substitutions may have occurred due to the inherent limitations of voice recognition software. These areas are purely typographical due to imperfections of the software programs and do not reflect any compromise in the patient's medical care. Please read the chart carefully and recognize, using context, where these substitutions have occurred. Plan discussed with: Patient, Other Date of Service: Apr 21, 2024 Billing Provider: HUMA GALINDO Cardiology Common Codes: [id number] HOSP CARE(High HUMA GALINDO Apr 21, 2024 13:13
[2024-04-21] MEDS: diphenhdrAMINE HCL 50 MG/1 ML VL ONE (15:24)
[2024-04-21] MEDS: VANCOMYCIN HCL 1000 MG VL ONE (15:37)
[2024-04-21] MEDS: VANCOMYCIN 1GM/250ML KIT 250 ML IV ONE (15:38)
[2024-04-21] MEDS: LIDOCAINE 2%HCL (LOCAL ANESTH.) INJ 20ML MDV ONE (15:42)
[2024-04-21] MEDS: MIDAZOLAM HCL 2MG/2ML 2ml VIAL (1mg/ml) ONE (15:51)
--- NOTE | 2024-04-21 16:42 | DVHNC2 ---
Operative Report Report Details Date: 04/21/24 Preop Diagnosis: Second-degree AV block type 2 Postop Diagnosis: Successful permanent pacemaker implantation Surgeon: Marlon Capellan MD Consent: The patient was informed of the risks and benefits of the procedure. These include but are not limited to complications of anesthesia, postoperative infection, incomplete relief of symptoms, recurrence of symptoms, damage to blood vessels, nerves and tendons, deep venous thrombosis, pulmonary embolism and possible need for repeat surgery in the future. Complications: None Condition Condition on Discharge: Good Disposition Discharge Disposition: Home Procedure Details Procedure Details: * Pacemaker[: Permanent pacemaker implantation with a Biotronik device.] Patient prepped and draped in the usual fashion and mild conscious sedation given. under sterile condition. 2% Lidocaine was used to anesthetize the: * Left Subclavicular region[] Using Seldinger technique, the subclavian vein was engaged and a guidewire was placed. 10 surgical blade was used to make a linear insertion. Using blunt dissection an electrocautery pocket was created. * RV Lead Usin F sheath [an active fixation electrode was placed. This was a soleus S45 serial [id number]. ] * RA Lead Using 7F sheath RA - lead was inserted. A soleus S45 serial [id number] by Bi[employer]ik was inserted. Threshold parameters were obtained. Leads were secured using 2-0 Ethibond .Generator was implanted. Pocket irrigated with Vancomycin Saline Solution. Pocket closed with 3-0 biofilament suture. * Result RA: Thresholds were at 3.3 P waves. 0.8 volts with 0.4 milliseconds and 720 Ohms of impedance. RV: Thresholds with an R-wave of 7.6 volts. 0.5 volts at 0.4 milliseconds and 605 Ohms of impedance. The pacemaker generator is a EDORA 8 DR-T serial [id number] BY [employer] Parameters were as follows: Mode DDD DR at a rate of 60/130. Av delay of 185/165 milliseconds. Av extension with a P VA ERP of 250 milliseconds. RA sensitivity at 0.5 milliseconds RV sensitivity automatic at 2.0. Maximum RA output 4 volts/0.4 seconds. RV output 4 volts/0.4 seconds. Patient tolerated the procedure well there were no complications. A chest x-ray and EKG were ordered for evaluation of placement MARLON CAPELLAN Sr., MD Apr 21, 2024 16:42
--- NOTE | 2024-04-21 17:11 | DVH ---
EXAM: XY CHEST PORTABLE TECHNIQUE: Single frontal chest radiograph CLINICAL HISTORY: S/P PACEMAKER COMPARISON: None Findings/Impression: Frontal chest radiograph demonstrates no acute osseous or superficial soft tissue abnormalities. Left chest wall dual chamber pacemaker. The trachea is midline. The cardiac silhouette and mediastinum are within normal limits. Mild low lung volumes with bronchovascular crowding. Bibasilar atelectasis. No definite pneumothorax, pleural effusions, or consolidations.
--- NOTE | 2024-04-21 17:19 | DVHPN2 ---
Subjective Seen and examined at bedside, POD1 s/p bilateral feet surgery by Dr. Barbosa. Patient is now having bradycardia, cardio eval done. PPM today. Changes from previous H/P or p: No Changes ENT: No Ear pain, No Ear discharge, No Nose pain, No Nose discharge, No Nose congestion, No Mouth pain, No Mouth swelling, No Throat pain, No Throat swelling, No Other Cardiovascular: No Chest Pain, No Palpitations, No Orthopnea, No Paroxysmal Noc. Dyspnea, No Edema, No Lt Headedness, No Other Respiratory: No Cough, No Dry, No Shortness of breath, No SOB with excertion, No Wheezing, No Hemoptysis, No Pleuritic Pain, No Sputum, No Other Objective Vitals Vital Signs Date Time Temp Pulse Resp B/P (MAP) Pulse Ox O2 Delivery O2 Flow Rate FiO2 04/21/24 09:06 130/70 04/21/24 09:00 98.7 72 20 95 98.7 04/21/24 08:00 Room Air* 0 21 Intake/Output Intake and Output 04/21/24 07:00 Intake Total 4020 ml Output Total 3600 ml Balance 420 ml Intake Oral 4020 ml Output Urine Total 3600 ml Medications Current Medications Medications Dose Ordered Sig/Krysta Route Start Time Stop Time Status Last Admin Dose Admin Nitroglycerin 0.4 mg Q5MINP PRN SL 04/19/24 14:00 Morphine Sulfate 2 mg Q30M PRN IV 04/19/24 14:00 Furosemide 40 mg BIDP PO 04/19/24 22:00 04/21/24 09:06 40 MG Lidocaine 1 patch DAILY PRN TOP 04/19/24 14:00 Hydromorphone HCl 0.25 mg Q3HPRN PRN IV 04/19/24 14:00 04/20/24 12:40 0.25 MG Pregabalin 25 mg BID PO 04/19/24 22:00 04/21/24 09:06 25 MG Cephalexin 500 mg Q6HR PO 04/19/24 18:00 Hold Ondansetron HCl 4 mg Q6HPRN PRN IV 04/19/24 16:00 04/20/24 19:42 4 MG Spironolactone 25 mg BID PO 04/20/24 22:00 04/21/24 09:05 25 MG Pramipexole Dihydrochloride 1 mg DAILY PO 04/21/24 10:00 04/21/24 12:10 1 MG Laboratory Results Laboratory Tests 04/21/24 06:21 Chemistry Test 04/20/24 17:42 04/21/24 06:21 Magnesium Level 2.2 mg/dL (1.6-2.6) Calcium Level 9.7 mg/dL (8.7-10.4) Coagulation Test 04/21/24 06:21 Prothrombin Time 10.3 sec (9.3-11.8) Prothrombin Time INR 0.97 (0.9-1.15) Activated Partial Thromboplast Time 27.8 SEC (24.5-34.5) HgA1c, TSH Test 04/20/24 17:42 Thyroid Stimulating Hormone (TSH) 1.29 uIU/mL (0.55-4.78) Urinalysis Test 04/17/24 12:29 Urine Color Yellow (Yellow) Urine Clarity Clear (Clear) Urine pH 5.5 (5.0-9.0) Urine Specific [place] 1.024 (1.001-1.035) Urine Protein Negative (Negative) Urine Ketones Negative (Negative) Urine Blood Negative /uL (Negative) Urine Nitrite Negative (Negative) Urine Bilirubin Negative (Negative) Urine Urobilinogen Normal mg/dL (Negative) Urine Leukocyte Esterase Negative /uL (Negative) Urine RBC 1 /hpf (0 - 4) Urine WBC 1 /hpf (0 - 5) Urine Squamous Epithelial Cells Few /hpf (<5) Urine Bacteria Few /hpf (None Seen) H Urine Mucus Few (None Seen) Urine Glucose Normal mg/dL (Normal) Assessment/Plan Assessment/Plan -status post right foot surgery for correction of hammertoe and ingrown toenails -Bradycardia- PPM today -obesity -primary hypertension -severe pain to right foot, chronic pain -Multiple Sclerosis- self cath at home -Goals of care-FULL CODE Plan discussed with: Patient My Orders Orders - JESSEE JOHNSTON MD Procedure Category Date Status Time Pramipexole Tablet PHA 04/21/24 In Process (Mirapex Tablet) 10:00 Date of Service: Apr 21, 2024 Billing Provider: JESSEE JOHNSTON MD Common Visit Codes: [id number] INP/OBS CARE(HIGH) JESSEE JOHNSTON MD Apr 21, 2024 17:19
[2024-04-22] VITALS (8 sets, daily range): BP systolic 136–146; BP diastolic 60–69; PULSE 64–81; RESP 18–20; TEMP 97.8–98.2; O2SAT 90–96
--- NOTE | 2024-04-22 12:54 | DVH ---
Procedure: XY CHEST XRAY 1 VIEW 04/22/2024 10:22 AM Indication: CXR FOR PACEMAKER/ICD LEAD PLACEMENT Comparison: XY CHEST PORTABLE on DOS: 04/21/24 TECHNIQUE: XY CHEST XRAY 1 VIEW FINDINGS: Medical devices: A multilead pacemaker is seen in the chest wall with leads extending to the cardiac chambers. Cardiomediastinal: The heart is normal in size. Pulmonary vasculature is within normal limits. Athero sclerotic calcification of the aortic arch noted. Lungs: Small left basilar pulmonary opacities. Right perihilar reticular opacities. The costophrenic angles are clear. No pneumothorax. Bones/soft tissues: No acute abnormality is noted. Reverse total left hip arthroplasty. IMPRESSION: 1. Bilateral reticular opacities that may represent subsegmental atelectasis, parenchymal scarring or developing pneumonia. Recommend clinical and biochemical correlation.
--- NOTE | 2024-04-22 15:08 | DVHPN2 ---
Consult Progress Note Subjective Review of Systems: CVS:Normal, MSK:Abnormal (BLE foot pain) Objective vital signs Vital Sign Date Time Temp Pulse Resp B/P (MAP) Pulse Ox O2 Delivery O2 Flow Rate FiO2 04/22/24 09:27 140/60 04/22/24 08:45 98.2 64 19 92 98.2 04/22/24 08:00 Room Air* 0 21 Total Intake and Output 04/21/24 04/21/24 04/22/24 15:00 23:00 07:00 Intake Total 0 ml 650 ml Output Total 900 ml 950 ml 1200 ml Balance -900 ml -950 ml -550 ml medications Current Medications Medications Dose Ordered Sig/Krysta Route Start Time Stop Time Status Last Admin Dose Admin Nitroglycerin 0.4 mg Q5MINP PRN SL 04/19/24 14:00 Morphine Sulfate 2 mg Q30M PRN IV 04/19/24 14:00 Furosemide 40 mg BIDP PO 04/19/24 22:00 04/22/24 09:27 40 MG Lidocaine 1 patch DAILY PRN TOP 04/19/24 14:00 Hydromorphone HCl 0.25 mg Q3HPRN PRN IV 04/19/24 14:00 04/21/24 22:10 0.25 MG Pregabalin 25 mg BID PO 04/19/24 22:00 04/22/24 09:27 25 MG Cephalexin 500 mg Q6HR PO 04/19/24 18:00 Hold Ondansetron HCl 4 mg Q6HPRN PRN IV 04/19/24 16:00 04/21/24 23:22 4 MG Spironolactone 25 mg BID PO 04/20/24 22:00 04/22/24 09:27 25 MG Pramipexole Dihydrochloride 1 mg DAILY PO 04/21/24 10:00 04/22/24 11:03 1 MG laboratory and microbiology Laboratory Tests 04/21/24 06:21 Test 04/21/24 06:21 Range/Units Serum Glucose 90 74-106 mg/dL Problem List/Assessment/Plan Problem List/Assessment/Plan Problem List/Assessment/Plan /Sinus bradycardia with intermittent second degree type II AV block Hypertension Hyperlipidemia Sjogren's syndrome Obstructive sleep apnea Morbid obesity Plan/Recommendation Transthoracic echocardiogram revealed EF 60% with normal RV function. There is mild to moderate aortic insufficiency. Scheduled for permanent pacemaker insertion later on today. In the meantime, we will recommend to avoid AV juan m blocking agents. Patient is to follow-up on 04/28/24 at 0830 for wound check. On 05/22/23 at 1000 for pacemaker interrogation. On 05/26/[address] Capellan for routine follow-up. Thank you for allowing us to care for this patient. Please call with any questions or concerns. Case Discussed with Dr Clements. There is no further cardiac work-up indicated at this time. Pending normal device interrogation and CXR patient is stable Cardiology standpoint. Patient to follow up with bar host on outpatient basis. Critical care, time spent: 48 minutes This medical document was created using an electronic medical record system with voice recognition software and computerized dictation system. Although this document has been carefully reviewed, there might still be some phonetic and typographical errors. Occasional wrong-word or ``sound-alike substitutions may have occurred due to the inherent limitations of voice recognition software. These areas are purely typographical due to imperfections of the software programs and do not reflect any compromise in the patient's medical care. Please read the chart carefully and recognize, using context, where these substitutions have occurred. This medical document was created using an electronic medical record system with voice recognition software and computerized dictation system. Although this document has been carefully reviewed, there might still be some phonetic and typographical errors. Occasional wrong-word or ``sound-alike substitutions may have occurred due to the inherent limitations of voice recognition software. These areas are purely typographical due to imperfections of the software programs and do not reflect any compromise in the patient's medical care. Please read the chart carefully and recognize, using context, where these substitutions have occurred. Plan discussed with: Patient Date of Service: Apr 22, 2024 Billing Provider: IBRAHIMA HAHN Common Visit Codes: [id number] INP/OBS CARE(HIGH) IBRAHIMA HAHN Apr 22, 2024 15:08
--- NOTE | 2024-04-22 18:09 | DVHPN2 ---
Subjective in bed resting Changes from previous H/P or p: No Changes ENT: No Ear pain, No Ear discharge, No Nose pain, No Nose discharge, No Nose congestion, No Mouth pain, No Mouth swelling, No Throat pain, No Throat swelling, No Other Cardiovascular: No Chest Pain, No Palpitations, No Orthopnea, No Paroxysmal Noc. Dyspnea, No Edema, No Lt Headedness, No Other Respiratory: No Cough, No Dry, No Shortness of breath, No SOB with excertion, No Wheezing, No Hemoptysis, No Pleuritic Pain, No Sputum, No Other Objective Vitals Vital Signs Date Time Temp Pulse Resp B/P (MAP) Pulse Ox O2 Delivery O2 Flow Rate FiO2 04/22/24 17:00 97.8 76 18 137/69 (91) 92 97.8 04/22/24 08:00 Room Air* 0 21 Intake/Output Intake and Output 04/22/24 05:00 Intake Total 650 ml Output Total 3050 ml Balance -2400 ml Intake Oral 650 ml Output Urine Total 3050 ml Medications Current Medications Medications Dose Ordered Sig/Krysta Route Start Time Stop Time Status Last Admin Dose Admin Nitroglycerin 0.4 mg Q5MINP PRN SL 04/19/24 14:00 Morphine Sulfate 2 mg Q30M PRN IV 04/19/24 14:00 Furosemide 40 mg BIDP PO 04/19/24 22:00 04/22/24 09:27 40 MG Lidocaine 1 patch DAILY PRN TOP 04/19/24 14:00 Hydromorphone HCl 0.25 mg Q3HPRN PRN IV 04/19/24 14:00 04/21/24 22:10 0.25 MG Pregabalin 25 mg BID PO 04/19/24 22:00 04/22/24 09:27 25 MG Cephalexin 500 mg Q6HR PO 04/19/24 18:00 Hold Ondansetron HCl 4 mg Q6HPRN PRN IV 04/19/24 16:00 04/21/24 23:22 4 MG Spironolactone 25 mg BID PO 04/20/24 22:00 04/22/24 09:27 25 MG Pramipexole Dihydrochloride 1 mg DAILY PO 04/21/24 10:00 04/22/24 11:03 1 MG Laboratory Results Laboratory Tests 12/6/24 06:21 Urinalysis Test 04/17/24 12:29 Urine Color Yellow (Yellow) Urine Clarity Clear (Clear) Urine pH 5.5 (5.0-9.0) Urine Specific [place] 1.024 (1.001-1.035) Urine Protein Negative (Negative) Urine Ketones Negative (Negative) Urine Blood Negative /uL (Negative) Urine Nitrite Negative (Negative) Urine Bilirubin Negative (Negative) Urine Urobilinogen Normal mg/dL (Negative) Urine Leukocyte Esterase Negative /uL (Negative) Urine RBC 1 /hpf (0 - 4) Urine WBC 1 /hpf (0 - 5) Urine Squamous Epithelial Cells Few /hpf (<5) Urine Bacteria Few /hpf (None Seen) H Urine Mucus Few (None Seen) Urine Glucose Normal mg/dL (Normal) Assessment/Plan Assessment/Plan -status post right foot surgery for correction of hammertoe and ingrown toenails -Bradycardia- s/p ppm -obesity -primary hypertension -severe pain to right foot, chronic pain -Multiple Sclerosis- self cath at home -Goals of care-FULL CODE Plan discussed with: Patient Date of Service: Apr 22, 2024 Billing Provider: CHRISSY REZA MD Common Visit Codes: [id number] INP/OBS CARE(HIGH) CHRISSY REZA MD Apr 22, 2024 18:09
[2024-04-23] VITALS (8 sets, daily range): BP systolic 115–142; BP diastolic 58–77; PULSE 68–83; RESP 18–20; TEMP 97.9–98.3; O2SAT 92–98
--- NOTE | 2024-04-23 21:04 | DVHPN2 ---
Subjective in bed resting Changes from previous H/P or p: No Changes ENT: No Ear pain, No Ear discharge, No Nose pain, No Nose discharge, No Nose congestion, No Mouth pain, No Mouth swelling, No Throat pain, No Throat swelling, No Other Cardiovascular: No Chest Pain, No Palpitations, No Orthopnea, No Paroxysmal Noc. Dyspnea, No Edema, No Lt Headedness, No Other Respiratory: No Cough, No Dry, No Shortness of breath, No SOB with excertion, No Wheezing, No Hemoptysis, No Pleuritic Pain, No Sputum, No Other Objective Vitals Vital Signs Date Time Temp Pulse Resp B/P (MAP) Pulse Ox O2 Delivery O2 Flow Rate FiO2 04/23/24 20:00 18 98 Room Air* 0 21 04/23/24 20:00 71 04/23/24 17:55 117/63 04/23/24 17:00 98.1 98.1 Intake/Output Intake and Output 04/23/24 05:00 Intake Total 1350 ml Output Total 550 ml Balance 800 ml Intake Oral 1350 ml Output Urine Total 550 ml # Voids 1 # Bowel Movements 2 Medications Current Medications Medications Dose Ordered Sig/Krysta Route Start Time Stop Time Status Last Admin Dose Admin Nitroglycerin 0.4 mg Q5MINP PRN SL 04/19/24 14:00 Morphine Sulfate 2 mg Q30M PRN IV 04/19/24 14:00 Furosemide 40 mg BIDP PO 04/19/24 22:00 04/23/24 09:12 40 MG Lidocaine 1 patch DAILY PRN TOP 04/19/24 14:00 Hydromorphone HCl 0.25 mg Q3HPRN PRN IV 04/19/24 14:00 04/23/24 17:25 0.25 MG Pregabalin 25 mg BID PO 04/19/24 22:00 04/23/24 09:12 25 MG Cephalexin 500 mg Q6HR PO 04/19/24 18:00 Hold Ondansetron HCl 4 mg Q6HPRN PRN IV 04/19/24 16:00 04/23/24 17:23 4 MG Spironolactone 25 mg BID PO 04/20/24 22:00 04/23/24 09:12 25 MG Pramipexole Dihydrochloride 1 mg DAILY PO 04/21/24 10:00 04/23/24 10:12 1 MG Laboratory Results Laboratory Tests 04/21/24 06:21 Urinalysis Test 04/17/24 12:29 Urine Color Yellow (Yellow) Urine Clarity Clear (Clear) Urine pH 5.5 (5.0-9.0) Urine Specific [place] 1.024 (1.001-1.035) Urine Protein Negative (Negative) Urine Ketones Negative (Negative) Urine Blood Negative /uL (Negative) Urine Nitrite Negative (Negative) Urine Bilirubin Negative (Negative) Urine Urobilinogen Normal mg/dL (Negative) Urine Leukocyte Esterase Negative /uL (Negative) Urine RBC 1 /hpf (0 - 4) Urine WBC 1 /hpf (0 - 5) Urine Squamous Epithelial Cells Few /hpf (<5) Urine Bacteria Few /hpf (None Seen) H Urine Mucus Few (None Seen) Urine Glucose Normal mg/dL (Normal) Assessment/Plan Assessment/Plan -status post right foot surgery for correction of hammertoe and ingrown toenails -Bradycardia- s/p ppm -obesity -primary hypertension -severe pain to right foot, chronic pain -Multiple Sclerosis- self cath at home -Goals of care-FULL CODE Plan discussed with: Other (nurse) Date of Service: Apr 23, 2024 Billing Provider: CHRISSY REZA MD Common Visit Codes: [id number] INP/OBS CARE(HIGH) CHRISSY REZA MD Apr 23, 2024 21:04
[2024-04-23] MEDS: guaiFENesin-DM 100/10mg/5ml SYR PO PRN (22:35)
[2024-04-24 01:00] VITALS: BP 134/61; PULSE 87; RESP 18; TEMP 99.4; O2SAT 95
[2024-04-24 05:00] VITALS: BP 128/61; PULSE 77; RESP 18; TEMP 99; O2SAT 95
[2024-04-24 08:00] VITALS: PULSE 76; PULSE 92; RESP 17; O2SAT 97
[2024-04-24 09:00] VITALS: BP 132/61; PULSE 78; RESP 17; TEMP 98.4; O2SAT 95
[2024-04-24 13:05] VITALS: BP 156/70; PULSE 77; RESP 17; TEMP 98.1; O2SAT 90
[2024-04-24 14:04] VITALS: BP 138/73; PULSE 77; RESP 17; TEMP 98.1; O2SAT 98
--- NOTE | 2024-04-24 15:07 | DVHDS2 ---
Discharge Summary Date of Admission Apr 19, 2024 at 13:54 Date of Discharge: Apr 19, 2024 Labs/Diagnostic Data: Laboratory Results Test 04/21/24 06:21 04/20/24 17:42 04/17/24 12:29 White Blood Count 11.2 10^3/uL (4.4-10.8) Red Blood Count 4.34 10^6/uL (4.0-5.20) Hemoglobin 13.6 g/dL (12.2-16.2) Hematocrit 40.5 % (36.0-46.0) Mean Corpuscular Volume 93.3 fL (80.0-100.0) Mean Corpuscular Hemoglobin 31.3 pg (28.0-32.0) Mean Corpuscular Hemoglobin Concent 33.5 g/dL (32.0-36.0) Red Cell Distribution Width 13.8 % (11.8-14.3) Platelet Count 236 10^3/uL (140-450) Mean Platelet Volume 8.6 fL (6.9-10.8) Neutrophils (%) (Auto) 72.7 % (37.0-80.0) Lymphocytes (%) (Auto) 17.0 % (10.0-50.0) Monocytes (%) (Auto) 8.8 % (0.0-12.0) Eosinophils (%) (Auto) 1.4 % (0.0-7.0) Basophils (%) (Auto) 0.1 % (0.0-2.0) Neutrophils # (Auto) 8.2 10 ^3/uL (1.6-8.6) Lymphocytes # (Auto) 1.9 10 ^3/uL (0.4-5.4) Monocytes # (Auto) 1.0 10 ^3/uL (0-1.3) Eosinophils # (Auto) 0.2 10 ^3/uL (0-0.8) Basophils # (Auto) 0 10 ^3/uL (0-0.2) Nucleated Red Blood Cells 0.0 % Prothrombin Time 10.3 sec (9.3-11.8) Prothrombin Time INR 0.97 (0.9-1.15) Activated Partial Thromboplast Time 27.8 SEC (24.5-34.5) Sodium Level 142 mmol/L (136-145) Potassium Level 3.5 mmol/L (3.5-5.1) Chloride Level 103 mmol/L (98-107) Carbon Dioxide Level 31 mmol/L (20-31) Anion Gap 8 (5-15) Blood Urea Nitrogen 15 mg/dL (9-23) Creatinine 0.98 mg/dL (0.550-1.02) Glomerular Filtration Rate Calc 63 mL/min (>90) BUN/Creatinine Ratio 15.3 (10.0-20.0) Serum Glucose 90 mg/dL (74-106) Calcium Level 9.7 mg/dL (8.7-10.4) Magnesium Level 2.2 mg/dL (1.6-2.6) Thyroid Stimulating Hormone (TSH) 1.29 uIU/mL (0.55-4.78) Urine Color Yellow (Yellow) Urine Clarity Clear (Clear) Urine pH 5.5 (5.0-9.0) Urine Specific [place] 1.024 (1.001-1.035) Urine Protein Negative (Negative) Urine Ketones Negative (Negative) Urine Blood Negative /uL (Negative) Urine Nitrite Negative (Negative) Urine Bilirubin Negative (Negative) Urine Urobilinogen Normal mg/dL (Negative) Urine Leukocyte Esterase Negative /uL (Negative) Urine RBC 1 /hpf (0 - 4) Urine WBC 1 /hpf (0 - 5) Urine Squamous Epithelial Cells Few /hpf (<5) Urine Bacteria Few /hpf (None Seen) Urine Mucus Few (None Seen) Urine Glucose Normal mg/dL (Normal) Total Bilirubin 0.4 mg/dL (0.2-1.0) Aspartate Amino Transferase (AST) 14 U/L (13-40) Alanine Aminotransferase (ALT) 21 U/L (7-40) Alkaline Phosphatase 98 U/L (46-116) Total Protein 6.9 g/dL (5.7-8.2) Albumin 4.2 g/dL (3.2-4.8) Other Laboratory Tests 04/21/24 06:21 Brief Hx & Hospital Course: The patient was a 68-year-old female being admitted to the hospital after having elective surgery of her right foot which included correction of ingrown toenails as well as surgical correction of hammertoes. Postoperatively the patient was noted to have severe pain to her right foot. Patient had been medicated with different modalities, and given the patient's home situation of living alone, t he patient was being evaluated for admission to the hospital for further monitoring. While in the PACU, the patient was also found to have periods of bradycardia, for which I witnessed myself for the patient to have a heart rate dropping into the 30s in addition to appreciating a second-degree type 2 heart block. For this reason alone in addition to pain management the patient was admitted to the telemetry floor. had pacemaker placed and tolerated well Condition at Discharge: Good Final Diagnosis/Problems List -status post right foot surgery for correction of hammertoe and ingrown toenails -Bradycardia- s/p ppm -obesity -primary hypertension -severe pain to right foot, chronic pain -Multiple Sclerosis- self cath at home Discharge Disposition: Home Discharge Instruct/Medications Diet: Regular Activity: Light activity Follow Up/Referral: Jacqueline juarez Medications: Toradol Discharge Statement: "Patient was advised to return to the ER or call 911 if any headaches, dizziness, shortness of breath, chest pain, abdominal pain, bleeding, fevers, or worsening of medical condition. Patient was counseled about treatment plan, medications, possible side effects, patientverbalized understanding. All questions were answered to the best of my ability. This discharge took greater then 30 minutes in planning, reviewing documentation, counseling the patient, and discussing with other team members." ASSESSMENT ASSESSMENT Assessment Successful permanent pacemaker implantation Date of Service: Apr 24, 2024 Billing Provider: CHRISSY REZA MD Common Visit Codes: [id number] DISCH DAY >30min CHRISSY REZA MD Apr 24, 2024 15:07
== END 2024-04-24 16:25 | disposition home or self-care (01) | DRG 501 ==
LOC: SUR 07:53 → TELE 13:54 → TELE-CENTR 17:56
PROVIDERS: ADMIT Nurse Practitioner Acute Care; ATTEND Hospitalist
PROC: 0HBRXZZ Excision of Toe Nail, External Approach (ICD-10-PCS; 2024-04-19)
PROC: 0L8V0ZZ Division of Right Foot Tendon, Open Approach (ICD-10-PCS; principal; 2024-04-19 09:15)
PROC: 0JH606Z Insertion of Pacemaker, Dual Chamber into Chest Subcutaneous Tissue and Fascia, Open Approach (ICD-10-PCS; 2024-04-21)
PROC: 02H63JZ Insertion of Pacemaker Lead into Right Atrium, Percutaneous Approach (ICD-10-PCS; 2024-04-21)
PROC: 02HK3JZ Insertion of Pacemaker Lead into Right Ventricle, Percutaneous Approach (ICD-10-PCS; 2024-04-21)
DX: M20.41 Other hammer toe(s) (acquired), right foot (principal); Z68.41 Body mass index [BMI] 40.0-44.9, adult; L60.0 Ingrowing nail; I10 Essential (primary) hypertension; G35 Multiple sclerosis; G89.29 Other chronic pain; I44.1 Atrioventricular block, second degree; E66.01 Morbid (severe) obesity due to excess calories; J45.909 Unspecified asthma, uncomplicated; M54.9 Dorsalgia, unspecified; G47.33 Obstructive sleep apnea (adult) (pediatric); E78.5 Hyperlipidemia, unspecified; K21.9 Gastro-esophageal reflux disease without esophagitis; M35.00 Sjogren syndrome, unspecified; Z82.49 Family history of ischemic heart disease and other diseases of the circulatory system; Z88.1 Allergy status to other antibiotic agents; Z88.5 Allergy status to narcotic agent; Z88.2 Allergy status to sulfonamides; Z88.8 Allergy status to other drugs, medicaments and biological substances; Z79.899 Other long term (current) drug therapy; Z80.8 Family history of malignant neoplasm of other organs or systems
CPT/HCPCS: 33208; 36415; 71045; 80048; 80053; 81001; 83735; 84443; 85025; 85610; 85730; 93306; 99152; G0378; J0131; J1100; J1885; J2250; J2405; J2704; J3490

== ENCOUNTER → 2024-07-28 | Outpatient (CLI) | payer OTHER | END | disposition home or self-care (01) | LOC: LAB 10:49 | PROVIDERS: ATTEND Family Medicine | DX: D48.5 Neoplasm of uncertain behavior of skin (principal) ==

== ENCOUNTER → 2024-09-12 | Outpatient (CLI) | payer OTHER ==
[2024-09-12 14:27] LABS: Basophils # (auto) 0 10 ^3/uL (0-0.2); Basophils % (auto) 0.6 % (0.0-2.0); Eosinophils # (auto) 0.2 10 ^3/uL (0-0.8); Eosinophils % (auto) 3.5 % (0.0-7.0); Hematocrit 40.2 % (36.0-46.0); Hemoglobin 13.4 g/dL (12.2-16.2); Lymphocytes # (auto) 1.7 10 ^3/uL (0.4-5.4); Mean Corpuscular Hemoglobin 30.9 pg (28.0-32.0); Mean Corpuscular Hgb Conc. 33.3 g/dL (32.0-36.0); Mean Corpuscular Volume 92.8 fL (80.0-100.0); Monocytes # (auto) 0.6 10 ^3/uL (0-1.3); Monocytes % (auto) 8.2 % (0.0-12.0); Neutrophils # (auto) 4.3 10 ^3/uL (1.6-8.6); Neutrophils % (auto) 62.7 % (37.0-80.0); Platelet Count (auto) 233 10^3/uL (140-450); Red Blood Cells 4.33 10^6/uL (4.0-5.20); Red Cell Distribution Width 13.4 % (11.8-14.3); White Blood Cell 6.9 10^3/uL (4.4-10.8)
[2024-09-12 14:45] LABS: Alanine Aminotransferase 21 U/L (7-40); Albumin 4.2 g/dL (3.2-4.8); Alkaline Phosphatase 89 U/L (46-116); Anion Gap 7 (5-15); Aspartate Aminotransferase 14 U/L (13-40); BUN/Creatinine Ratio 15.9 (10.0-20.0); Blood Urea Nitrogen 13 mg/dL (9-23); Calcium 9.9 mg/dL (8.7-10.4); Carbon Dioxide 28 mmol/L (20-31); Potassium 4.3 mmol/L (3.5-5.1); Sodium 144 mmol/L (136-145); Total Protein 6.8 g/dL (5.7-8.2)
[2024-09-12 14:46] LABS: Chloride 109 mmol/L (98-107); Glucose 109 mg/dL (74-106)
[2024-09-12 14:47] LABS: Bilirubin, Total 0.5 mg/dL (0.2-1.0)
== END | disposition home or self-care (01) ==
LOC: LAB 14:01
DX: Z01.812 Encounter for preprocedural laboratory examination (principal); I10 Essential (primary) hypertension; E78.5 Hyperlipidemia, unspecified; H02.831 Dermatochalasis of right upper eyelid; H02.834 Dermatochalasis of left upper eyelid; H57.813 Brow ptosis, bilateral; I47.10 Supraventricular tachycardia, unspecified; G47.33 Obstructive sleep apnea (adult) (pediatric); K21.9 Gastro-esophageal reflux disease without esophagitis; M06.9 Rheumatoid arthritis, unspecified
CPT/HCPCS: 36415; 80053; 85025

== ENCOUNTER → 2024-09-15 | Outpatient (CLI) | payer OTHER ==
[~2024-09-15] MED LIST changes: +B-COCAP34 OR; +COEN400C8 OR; +POTA-36 PO; +PREG50CA PO; +ZOFR4T PO
== END | disposition home or self-care (01) ==
LOC: LAB 11:39
PROVIDERS: ATTEND Family Medicine
DX: Z01.812 Encounter for preprocedural laboratory examination (principal); D48.5 Neoplasm of uncertain behavior of skin

== ENCOUNTER 2024-10-02 10:32 | Day surgery (SDC) | payer OTHER ==
[2024-09-28 09:06] LABS: Basophils # (auto) 0 10 ^3/uL (0-0.2); Basophils % (auto) 0.5 % (0.0-2.0); Eosinophils # (auto) 0.2 10 ^3/uL (0-0.8); Eosinophils % (auto) 3.6 % (0.0-7.0); Hematocrit 40.7 % (36.0-46.0); Hemoglobin 13.4 g/dL (12.2-16.2); Lymphocytes # (auto) 1.7 10 ^3/uL (0.4-5.4); Lymphocytes % (auto) 28.1 % (10.0-50.0); Mean Corpuscular Hemoglobin 30.5 pg (28.0-32.0); Mean Corpuscular Volume 92.4 fL (80.0-100.0); Monocytes # (auto) 0.5 10 ^3/uL (0-1.3); Neutrophils # (auto) 3.5 10 ^3/uL (1.6-8.6); Neutrophils % (auto) 58.8 % (37.0-80.0); Platelet Count (auto) 225 10^3/uL (140-450); Red Cell Distribution Width 13.8 % (11.8-14.3)
[2024-09-28 09:21] LABS: INR 0.92 (0.9-1.15); Partial Thromboplastin Time 28.1 SEC (24.5-34.5); Prothrombin Time 9.8 sec (9.3-11.8)
[2024-09-28 09:25] LABS: Urine Bacteria FEW /hpf (None Seen); Urine Blood Negative /uL (Negative); Urine Clarity Turbid (Clear); Urine Color Yellow (Yellow); Urine Mucus FEW (None Seen); Urine Protein, UAD TRACE (Negative); Urine Specific Gravity 1.029 (1.001-1.035); Urine Squamous Epithelial Cell MOD /hpf (<5); Urine Urobilinogen Normal (Negative); Urine WBC 8 /HPF (0-5); Urine pH 5.5 (5.0-9.0)
[2024-09-28 09:31] LABS: Alanine Aminotransferase 16 U/L (7-40); Alkaline Phosphatase 91 U/L (46-116); Anion Gap 8 (5-15); BUN/Creatinine Ratio 15.9 (10.0-20.0); Blood Urea Nitrogen 13 mg/dL (9-23); Calcium 9.9 mg/dL (8.7-10.4); Carbon Dioxide 28 mmol/L (20-31); Chloride 105 mmol/L (98-107); Glucose 101 mg/dL (74-106); Potassium 4.6 mmol/L (3.5-5.1); Sodium 141 mmol/L (136-145)
[2024-09-28 09:32] LABS: Albumin 4.4 g/dL (3.2-4.8); Bilirubin, Total 0.5 mg/dL (0.2-1.0)
[2024-09-28 09:36] LABS: Aspartate Aminotransferase 11 U/L (13-40)
[~2024-10-02] VITALS: Ht 152.4 cm; Wt 90.3 kg
[~2024-10-02 10:32] MED LIST changes: -DIME240C PO; -ESTR0.5T5 PO; -ONDA-144 PO; -PRAM0.7513 PO
[2024-10-02] MEDS ORDERED: ONDANSETRON HCL 4 MG/2 ML VIAL ONE (11:26)
[2024-10-02] MEDS ORDERED: GLYCOPYRROLATE 0.2 MG/ML 1ML VIAL ONE (11:26)
[2024-10-02] MEDS ORDERED: KETAMINE 50mg/ML 1ml syringe ONE (11:26)
[2024-10-02] MEDS ORDERED: LIDOCAINE 1% INJ PF 5ML AMP ONE ×2 (11:26→12:26)
[2024-10-02] MEDS ORDERED: DexAMETHasone SOD PHOS 10MG/1ML VIAL INJ ONE ×2 (11:26→12:18)
[2024-10-02] MEDS ORDERED: PROPOFOL 10 MG/ML 20 ML IV ONE ×2 (11:26→12:46)
[2024-10-02] MEDS ORDERED: KETOROLAC TROMETH 30 MG/ML 1ML VIAL ONE (11:26)
[2024-10-02] MEDS: CELECOXIB 100 MG CAP PO ONE (12:17)
[2024-10-02] MEDS ORDERED: CELECOXIB 100 MG CAP ONE (12:17)
[2024-10-02] MEDS: ACETAMINOPHEN IV 1000 MG/100ML (10MG/ML) IV ONE (12:17)
[2024-10-02] MEDS: GABAPENTIN 300 MG CAP PO ONE (12:17)
[2024-10-02] MEDS ORDERED: EPINEPHrine HCL 1 MG/1 ML AMP ONE (12:18)
[2024-10-02] MEDS ORDERED: GABAPENTIN 300 MG CAP ONE (12:18)
[2024-10-02] MEDS ORDERED: ACETAMINOPHEN IV 100 ML IV ONE (12:18)
[2024-10-02] MEDS ORDERED: ceFAZolin 1GM/50ML 100 ML IV ONE (12:20)
[2024-10-02] MEDS: BUPIVACAINE 0.5% P/F INJ 10 ML VIAL ONE (12:50)
[2024-10-02] MEDS: LIDOCAINE 1% HCL (LOCAL ANESTH.) INJ 20ML MDV ONE (12:50)
--- NOTE | 2024-10-02 13:05 | DVHOP2 ---
Operative Report - 2 Report Details Date: 10/02/24 Preop Diagnosis: 1. Right foot bone spur 2. Right foot dorsal nerve compression 3. Right foot pain Postop Diagnosis: Right foot bone spur Surgeon: Shan Chamberlain MD Anesthesiologist: See anesthesia Anesthesia: Mac Consent: The patient was informed of the risks and benefits of the procedure. These include but are not limited to complications of anesthesia, postoperative infection, incomplete relief of symptoms, recurrence of symptoms, damage to blood vessels, nerves and tendons, deep venous thrombosis, pulmonary embolism and possible need for repeat surgery in the future. Complications: None Estimated Blood Loss: Minimal Fluids: See anesthesia Findings: Consistent with the diagnosis Indications for Surgery: Worsening right foot pain Name of Procedure Performed 1. Right foot midfoot spur excision (05972) 2. Right foot nerve decompression (63656) Procedure Details Procedure Details: PRE-PROCEDURE INFORMATION: In the pre-op holding area, the extremity to be operated on was clearly marked and the patient verified correct laterality of the marking. The patient was transferred to the OR table and placed in a supine position. A timeout was performed in which identification of the correct patient, procedure, location, and materials was done. The right foot and leg were prepped and draped in normal sterile fashion. DESCRIPTION OF PROCEDURE: Attention was directed to the right dorsal foot where the exostosis was located. A stab incision was made just medial to the 5th digit. The incision was deepened through blunt and sharp dissection. Care was taken to avoid any neurovascular and tendinous structures. Using the Arthrex MIS bur, the exostosis was then removed in its entirety. After the bur was used the exostosis was no longer felt clinically. Using a [place], the dorsal cutaneous nerve was then lifted from the soft tissues in decompressed. The i ncision was closed with a 4-0 nylon. All surgical wounds were irrigated copiously with saline and closed in layers with the aforementioned suture material. A dry sterile dressing was placed on the surgical extremity. The patient was placed in a postop shoe POSTOPERATIVE INFORMATION: The patient tolerated the above noted procedure and anesthesia well and was transferred to the PACU with vital signs stable, and vascular status intact with capillary refill intact to all digits. Postoperative instructions reviewed in detail with the patient with written instructions provided. Patient will return to clinic in approximately 10-14 days for first postoperative visit. Patient has the number of the clinic and was instructed to call prior to that time should any problems, questions, or concerns arise. Condition Good Disposition Home SHAN CHAMBERLAIN DPM October 02, 2024 13:05
[2024-10-02 13:08] VITALS: PULSE 86; RESP 15; O2SAT 97
[2024-10-02] MEDS ORDERED: hydrALAZINE HCL 20 MG/ML VL IV PRN (13:30)
[2024-10-02] MEDS ORDERED: ePHEDrine SULFATE 50 MG/ML AMP IV PRN (13:30)
[2024-10-02] MEDS ORDERED: ONDANSETRON HCL 4 MG/2 ML VIAL IV PRN (13:30)
[2024-10-02] MEDS ORDERED: NALOXONE HCL 0.4 MG/ML VIAL IV PRN (13:30)
[2024-10-02] MEDS ORDERED: FLUMAZENIL 0.1 MG/ML INJ 10ML MDV IV PRN (13:30)
[2024-10-02] MEDS ORDERED: HYDROmorphone HCL 2 MG/ML VL/or syr IV PRN (13:30)
[2024-10-02] MEDS ORDERED: fentaNYL CITRATE 100 MCG/2 ML VL IV PRN (13:30)
[2024-10-02 13:38] VITALS: BP 147/81; PULSE 62; RESP 14; O2SAT 98
== END 2024-10-02 13:50 | disposition home or self-care (01) ==
LOC: SUR 10:32
PROVIDERS: ATTEND Podiatrist
DX: M77.50 Other enthesopathy of unspecified foot and ankle (principal); M79.671 Pain in right foot; M89.9 Disorder of bone, unspecified; I10 Essential (primary) hypertension; J45.909 Unspecified asthma, uncomplicated; K21.9 Gastro-esophageal reflux disease without esophagitis; E78.00 Pure hypercholesterolemia, unspecified; Z95.0 Presence of cardiac pacemaker; Z90.710 Acquired absence of both cervix and uterus; Z90.49 Acquired absence of other specified parts of digestive tract; Z98.890 Other specified postprocedural states; Z88.8 Allergy status to other drugs, medicaments and biological substances; E66.01 Morbid (severe) obesity due to excess calories; Z68.38 Body mass index [BMI] 38.0-38.9, adult; G47.33 Obstructive sleep apnea (adult) (pediatric); I48.91 Unspecified atrial fibrillation; Z88.0 Allergy status to penicillin
CPT/HCPCS: 28104; 36415; 64704; 80053; 81001; 85025; 85610; 85730; J0171; J0690; J1100; J1885; J2003; J2405; J2704; J3490; J0131

== ENCOUNTER → 2024-11-13 | Outpatient (CLI) | payer MEDICAID ==
[2024-11-13 11:26] LABS: Basophils # (auto) 0.1 10 ^3/uL (0-0.2); Basophils % (auto) 0.7 % (0.0-2.0); Eosinophils # (auto) 0.3 10 ^3/uL (0-0.8); Hemoglobin 13.8 g/dL (12.2-16.2); Lymphocytes # (auto) 1.7 10 ^3/uL (0.4-5.4); Lymphocytes % (auto) 25.1 % (10.0-50.0); Mean Corpuscular Hemoglobin 31.1 pg (28.0-32.0); Mean Corpuscular Hgb Conc. 33.7 g/dL (32.0-36.0); Mean Corpuscular Volume 92.2 fL (80.0-100.0); Monocytes # (auto) 0.6 10 ^3/uL (0-1.3); Monocytes % (auto) 8.6 % (0.0-12.0); Neutrophils # (auto) 4.3 10 ^3/uL (1.6-8.6); Neutrophils % (auto) 61.6 % (37.0-80.0); Platelet Count (auto) 205 10^3/uL (140-450); Red Blood Cells 4.45 10^6/uL (4.0-5.20); Red Cell Distribution Width 14.6 % (11.8-14.3); White Blood Cell 6.9 10^3/uL (4.4-10.8)
[2024-11-13 11:40] LABS: Alanine Aminotransferase 15 U/L (7-40); Albumin 4.4 g/dL (3.2-4.8); Alkaline Phosphatase 90 U/L (46-116); Anion Gap 9 (5-15); Aspartate Aminotransferase 14 U/L (13-40); BUN/Creatinine Ratio 19.8 (10.0-20.0); Bilirubin, Total 0.4 mg/dL (0.2-1.0); Blood Urea Nitrogen 19 mg/dL (9-23); Calcium 10.4 mg/dL (8.7-10.4); Carbon Dioxide 25 mmol/L (20-31); Glucose 95 mg/dL (74-106); Potassium 4.8 mmol/L (3.5-5.1); Sodium 142 mmol/L (136-145); Triglycerides 112 mg/dL (< 150)
[2024-11-13 11:44] LABS: Chloride 108 mmol/L (98-107); Cholesterol 225 mg/dL (< 200); HDL Cholesterol 64 mg/dL (40-59); LDL Cholesterol 151 mg/dL (< 100)
== END | disposition home or self-care (01) ==
LOC: LAB 10:58
PROVIDERS: ATTEND Internal Medicine
DX: I10 Essential (primary) hypertension (principal); E78.5 Hyperlipidemia, unspecified; R73.9 Hyperglycemia, unspecified; Z12.11 Encounter for screening for malignant neoplasm of colon
CPT/HCPCS: 36415; 80053; 80061; 83036; 85025

== ENCOUNTER → 2024-11-15 | Outpatient (CLI) | payer MEDICAID | END | disposition home or self-care (01) | LOC: LAB 15:51 | PROVIDERS: ATTEND Internal Medicine | DX: I10 Essential (primary) hypertension (principal); E78.5 Hyperlipidemia, unspecified; R73.9 Hyperglycemia, unspecified; Z12.11 Encounter for screening for malignant neoplasm of colon | CPT/HCPCS: 82274 ==

== ENCOUNTER 2025-04-03 10:42 | Outpatient (CLI) | payer MEDICAID ==
[~2025-04-03 10:42] MED LIST changes: +BUMEX2MG; +EVOL140I SC; -FURO40TA4 PO; -LIDO5DIS21 TOP; -OMEP20TA PO; +PRAM0.37 PO; -PRAZ1CAP2 PO; -SPIR25TA8 PO
[2025-04-03] MEDS ORDERED: IOHEXOL 300 MG/ML 100ML BOTTLE IJ ONE (10:49)
[2025-04-03] MEDS ORDERED: LIDOCAINE 2%HCL (LOCAL ANESTH.) INJ 10ml MDV ONE (11:09)
[2025-04-03] MEDS ORDERED: methylPREDNISolone ACETATE 80 MG/ML VL ONE (11:09)
[2025-04-03] MEDS ORDERED: BUPIVACAINE HCL 0.25% P/F 10 ML VIAL ONE (11:09)
--- NOTE | 2025-04-03 13:21 | DVH ---
PROCEDURE: Right Shoulder abd left thumb Steroid Injection HISTORY: Osteoarthritis DOCUMENTATION: Informed consent was obtained and a procedural time out was performed. FT: 0.1 Dose (DAP): 1 Technique: Following adequate sterile preparation with chloroprep solution and local anesthesia using 1% lidocaine, a 22-gauge needle was introduced into the right shoulder joint and left first cmc using intermittent fluoroscopic guidance. Intra-articular location of the needle tip was confirmed with a small amount of Omnipaque contrast. Subsequently 40 mg of Kenalog and 7 cc, 0.25 % bupivacaine were injected slowly into the shoulder joint space and 40 mg of Kenalog and 3 cc, 0.25 % bupivacaine into the first thumb CMC joint. No immediate competitions were seen. FINDINGS: There is contrast opacification of the joint capsule. There is washout of contrast upon Steroid injection. Impression: Uneventful right shoulder and left first CMC injection with Kenalog and bupivacaine as described above.
[2025-04-04] MEDS ORDERED: BUPIVACAINE 0.25% INJ 50ML VIAL ONE (07:21)
[2025-04-04] MEDS ORDERED: BUPIVACAINE HCL 50 ML ONE (07:21)
[2025-04-04] MEDS ORDERED: LIDOCAINE 1% HCL (LOCAL ANESTH.) INJ 20ML MDV ONE (08:40)
[2025-04-04] MEDS ORDERED: SILVER NITRATE-POTAS NITRA STICK TOP ONE (09:32)
[2025-04-04] MEDS ORDERED: BACITRACIN TOP OINT 1 UD PKG TOP ONE (09:49)
== END 2025-04-03 17:00 | disposition home or self-care (01) ==
LOC: XYW 10:42
PROVIDERS: ATTEND Orthopaedic Surgery Sports Medicine
DX: M19.011 Primary osteoarthritis, right shoulder (principal); M18.12 Unilateral primary osteoarthritis of first carpometacarpal joint, left hand; G47.30 Sleep apnea, unspecified; F41.9 Anxiety disorder, unspecified; Z79.899 Other long term (current) drug therapy; Z90.710 Acquired absence of both cervix and uterus; Z87.01 Personal history of pneumonia (recurrent); Z85.3 Personal history of malignant neoplasm of breast; Z85.42 Personal history of malignant neoplasm of other parts of uterus; Z88.0 Allergy status to penicillin; Z88.2 Allergy status to sulfonamides; Z88.5 Allergy status to narcotic agent; Z88.8 Allergy status to other drugs, medicaments and biological substances; Z80.8 Family history of malignant neoplasm of other organs or systems; Z82.49 Family history of ischemic heart disease and other diseases of the circulatory system
CPT/HCPCS: 20600; 20610; 77002; J1010; J2003; J3490; Q9967; 73100

== ENCOUNTER 2025-04-04 07:41 | Day surgery (SDC) | payer MEDICAID ==
[2025-03-30 12:16] LABS: Hematocrit 42.5 % (36.0-46.0); Hemoglobin 14.1 g/dL (12.2-16.2); Mean Corpuscular Hemoglobin 31.3 pg (28.0-32.0); Mean Corpuscular Volume 94.1 fL (80.0-100.0); Nucleated Red Blood Cells % 0.1 %
[2025-03-30 12:26] LABS: INR 0.92 (0.9-1.15); Partial Thromboplastin Time 29.1 SEC (24.5-34.5); Prothrombin Time 9.8 sec (9.3-11.8)
[2025-03-30 12:33] LABS: Alanine Aminotransferase 20 U/L (7-40); Albumin 4.2 g/dL (3.2-4.8); Alkaline Phosphatase 96 U/L (46-116); Anion Gap 7 (5-15); BUN/Creatinine Ratio 19.5 (10.0-20.0); Blood Urea Nitrogen 15 mg/dL (9-23); Carbon Dioxide 29 mmol/L (20-31); Chloride 105 mmol/L (98-107); Glucose 89 mg/dL (74-106); Potassium 4.8 mmol/L (3.5-5.1); Sodium 141 mmol/L (136-145); Total Protein 7.1 g/dL (5.7-8.2)
[2025-03-30 12:34] LABS: Bilirubin, Total 0.3 mg/dL (0.2-1.0)
[2025-03-30 13:15] LABS: Calcium 9.6 mg/dL (8.7-10.4)
[2025-03-30 13:51] LABS: Urine Protein, UAD Negative (Negative)
[~2025-04-04] VITALS: Ht 152.4 cm; Wt 90.3 kg
[2025-04-04 07:56] VITALS: TEMP 97.1
[2025-04-04] MEDS: GABAPENTIN 300 MG CAP PO ONE (08:45)
[2025-04-04] MEDS ORDERED: ONDANSETRON HCL 4 MG/2 ML VIAL ONE (09:00)
[2025-04-04] MEDS ORDERED: LIDOCAINE 2%HCL (LOCAL ANESTH.) INJ 20ML MDV ONE (09:00)
[2025-04-04] MEDS ORDERED: KETAMINE 50mg/ML 1ml syringe ONE (09:01)
[2025-04-04] MEDS ORDERED: PROPOFOL 10 MG/ML 20 ML IV ONE (09:01)
[2025-04-04] MEDS ORDERED: KETOROLAC TROMETH 30 MG/ML 1ML VIAL ONE (09:01)
[2025-04-04] MEDS ORDERED: GLYCOPYRROLATE 0.2 MG/ML 1ML VIAL ONE (09:01)
[2025-04-04] MEDS ORDERED: LIDOCAINE 2% TOPICAL JELLY 5 ML URJT TOP ONE (09:03)
[2025-04-04] MEDS: ceFAZolin 2 GM/D5W50ml 50 ML IV ONE (09:11)
[2025-04-04] MEDS ORDERED: fentaNYL CITRATE 100 MCG/2 ML VL ONE (09:48)
--- NOTE | 2025-04-04 09:59 | DVHOP2 ---
Operative Report - 2 Report Details Date: 04/04/25 Preop Diagnosis: 1. Right foot tarsal tunnel syndrome 2. Right foot hammer toe 2-5 3. Right foot pain 4. Left foot ingrown nail 5. Left foot pain Postop Diagnosis: Same as preop Surgeon: Shan Chamberlain MD Anesthesiologist: Anesthesia Anesthesia: General Consent: The patient was informed of the risks and benefits of the procedure. These include but are not limited to complications of anesthesia, postoperative infection, incomplete relief of symptoms, recurrence of symptoms, damage to blood vessels, nerves and tendons, deep venous thrombosis, pulmonary embolism and possible need for repeat surgery in the future. Complications: None Estimated Blood Loss: Minimal Fluids: See anesthesia Findings: Consistent with diagnosis Indications for Surgery: Worsening bilateral foot pain Name of Procedure Performed 1. Right foot tarsal tunnel release (49073) 2. Right foot hammer toe repair 2-5 (98024) x 4 3. Right foot flexor tenotomy 2-5 (49020) x 4 4. Left foot hallux ingrown nail matrix (15766) Procedure Details Procedure Details: PRE-PROCEDURE INFORMATION: In the pre-op holding area, the extremity to be operated on was clearly marked and the patient verified correct laterality of the marking. The patient was transferred to the OR table and placed in a supine position. A timeout was performed in which identification of the correct patient, procedure, location, and materials was done. The bilateral foot and leg were prepped and draped in normal sterile fashion. The foot and leg were exsanguinated and the thigh tourniquet was inflated to 250 mmHg. DESCRIPTION OF PROCEDURE: Attention was directed to the right foot where linear incision was made at the medial ankle. Care was taken throughout the dissection to avoid damage to the neurovascular and tendinous structures. Hemostasis was achieved via electrocautery. The incision was deepened through blunt dissection to the level of the tarsal tunnel ligament. Once the ligament was visualized it was transected using dissecting scissors, effectively decompressing the underlying tibial nerve. The incision was closed with 3-0 Monocryl and 4-0 nylon. Attention was directed to the right 2nd where harmanertoerich was located was located. A stab incision was made medial to the right hallux. The incision was deepened through blunt and sharp dissection. Care was taken to avoid any neurovascular and tendinous structures. Using the Arthrex MIS bur, an osteotomy was performed and correction of the rigid hammertoe was noted. After the bur was used the exostosis was no longer felt clinically. The incision was closed with a 4-0 nylon. Attention was directed to the right 3rd where hammertoe was located was located. A stab incision was made medial to the right hallux. The incision was deepened through blunt and sharp dissection. Care was taken to avoid any neurovascular and tendinous structures. Using the Arthrex MIS bur, an osteotomy was performed and correction of the rigid hammertoe was noted. After the bur was used the exostosis was no longer felt clinically. The incision was closed with a 4-0 nylon. Attention was directed to the right 4th where hammertoe was located was located. A stab incision was made medial to the right hallux. The incision was deepened through blunt and sharp dissection. Care was taken to avoid any neurovascular and tendinous structures. Using the Arthrex MIS bur, an osteotomy was performed and correction of the rigid hammertoe was noted. After the bur was used the exostosis was no longer felt clinically. The incision was closed with a 4-0 nylon. Attention was directed to the right 5th where hammertoe was located was located. A stab incision was made medial to the right hallux. The incision was deepened through blunt and sharp dissection. Care was taken to avoid any neurovascular and tendinous structures. Using the Arthrex MIS bur, an osteotomy was performed and correction of the rigid hammertoe was noted. After the bur was used the exostosis was no longer felt clinically. The incision was closed with a 4-0 nylon. Attention was directed to the 2nd toe where using a 18 gauge needle, the toe was extended and a sweeping motion was made on the FDL. It was noted that the contracture of the digit was then relieved after the flexor tendon was released. Attention was directed to the 3rd toe where using a 18 gauge needle, the toe was extended and a sweeping motion was made on the FDL. It was noted that the con tracture of the digit was then relieved after the flexor tendon was released. Attention was directed to the 4th toe where using a 18 gauge needle, the toe was extended and a sweeping motion was made on the FDL. It was noted that the contracture of the digit was then relieved after the flexor tendon was released. Attention was directed to the 5th toe where using a 18 gauge needle, the toe was extended and a sweeping motion was made on the FDL. It was noted that the contracture of the digit was then relieved after the flexor tendon was released. All surgical wounds were irrigated copiously with saline and closed in layers w ith the aforementioned suture material. A dry sterile dressing was placed on the surgical extremity. The patient was placed in a cam boot POSTOPERATIVE INFORMATION: The patient tolerated the above noted procedure and anesthesia well and was transferred to the PACU with vital signs stable, and vascular status intact with capillary refill intact to all digits. Postoperative instructions reviewed in detail with the patient with written instructions provided. Patient will return to clinic in approximately 10-14 days for first postoperative visit. Patient has the number of the clinic and was instructed to call prior to that time should any problems, questions, or concerns arise. Condition Good Disposition Home Visit Coding Podiatry Date of Service if different f: Apr 04, 2025 Billing Provider: SHAN CHAMBERLAIN DPM Podiatry Common Visit Codes: PROCEDURE ONLY SHAN CHAMBERLAIN DPM Apr 04, 2025 09:59
[2025-04-04 10:00] VITALS: PULSE 115; RESP 22
[2025-04-04] MEDS: HYDROmorphone HCL 2 MG/ML VL/or syr ONE (10:09)
[2025-04-04] MEDS: HYDROmorphone HCL 2 MG/ML VL/or syr IV PRN (10:14)
[2025-04-04] MEDS ORDERED: NALOXONE HCL 0.4 MG/ML VIAL IV PRN (10:15)
[2025-04-04] MEDS ORDERED: fentaNYL CITRATE 100 MCG/2 ML VL IV PRN (10:15)
[2025-04-04] MEDS ORDERED: FLUMAZENIL 0.1 MG/ML INJ 10ML MDV IV PRN (10:15)
[2025-04-04] MEDS ORDERED: hydrALAZINE HCL 20 MG/ML VL IV PRN (10:15)
[2025-04-04] MEDS: ONDANSETRON HCL 4 MG/2 ML VIAL IV PRN (10:31)
[2025-04-04] MEDS: CELECOXIB 100 MG CAP PO ONE (10:41)
[2025-04-04] MEDS: ACETAMINOPHEN IV 1000 MG/100ML (10MG/ML) IV ONE (10:43)
[2025-04-04] MEDS: PREGABALIN 25 MG CAP PO ONE (10:49)
[2025-04-04] MEDS: PREGABALIN 25 MG CAP ONE (10:51)
[2025-04-04 11:15] VITALS: BP 135/94; PULSE 82; RESP 17; O2SAT 96
== END 2025-04-04 11:40 | disposition home or self-care (01) ==
LOC: SUR 07:41
PROVIDERS: ATTEND Podiatrist
DX: G57.51 Tarsal tunnel syndrome, right lower limb (principal); M20.41 Other hammer toe(s) (acquired), right foot; L60.0 Ingrowing nail; M20.12 Hallux valgus (acquired), left foot; Z79.899 Other long term (current) drug therapy; Z98.890 Other specified postprocedural states; Z88.0 Allergy status to penicillin; Z88.1 Allergy status to other antibiotic agents; Z88.2 Allergy status to sulfonamides; Z88.5 Allergy status to narcotic agent; Z88.8 Allergy status to other drugs, medicaments and biological substances
CPT/HCPCS: 11750; 28010; 28899; 36415; 80053; 81001; 85025; 85610; 85730; J0169; J0690; J1100; J1171; J1885; J2405; J2704; J0131